=== PATIENT | female | born 1955 | race Caucasian/White ===

== ENCOUNTER 2020-11-14 08:08 | Outpatient (CLI) | payer OTHER, SELFPAY ==
--- NOTE | ~2020-11-14 | DEXA_ITS ---
Bone Density Report Name: Christen Hunter Age: 65 Sex: Female Ethnicity: White Date of : 1955 Indication: postmenopausal; asthma or emphysema; Referring Provider: JEREMY GORDON Study: Bone densitometry was performed. Exam Date: November 14, 2020 Accession number: [id number] Bone Density: Region BMD T-score Z-score Classification AP Spine (L1-L4) 1.067 0.2 2.0 Normal Femoral Neck (Left) 0.813 -0.3 1.2 Normal Total Hip (Left) 0.959 0.1 1.4 Normal Total Hip Bilateral Avg 0.944 0.0 1.3 Normal Femoral Neck (Right) 0.769 -0.7 0.8 Normal Total Hip (Right) 0.928 -0.1 1.1 Normal World Health Organization criteria for BMD impression classify patients as: Normal (T-score at or above -1.0), Osteopenia (T-score between -1.0 and -2.5), or Osteoporosis (T-score at or below -2.5). 10-year Fracture Risk: FRAX not reported because: All T-scores for Spine Total, Hip Total, Femoral Neck at or above -1.0 Clinical Information Provided by Patient: Has used the following medications: Vitamin D, Calcium Has the following medical conditions: Asthma or Emphysema Patient maximum height was 65 Menopause Age: 45 No regular weight bearing exercise Drinks caffeinated beverages Onset of menses at age 14 Number of children 1 Impression: The patient has normal bone mass. Discussion: BONE DENSITY IS ABOVE THE MINIMUM DESIRABLE LEVEL AT ALL SKELETAL SITES TESTED. This patient?s bone mineral density is above the minimum desirable level (T-score -1.0 or better) at all sites measured. The patient should follow a healthful lifestyle (good nutrition with adequate calcium and vitamin D, and appropriate weight-bearing exercise). Follow-Up: Consider repeating this study in 5 years or sooner if there is some new clinical indication. Reported by: DALE on 11/14/2020 8:27:00 AM. Reviewed, dictated and finalized at location AMartha CLARK
== END 2020-11-14 08:09 | disposition home or self-care (01) ==
LOC: ANHIMG 08:15
PROVIDERS: PCP Family Medicine; Visit Provider Obstetrics & Gynecology
DX: Z78.0 Asymptomatic menopausal state (principal)
CPT/HCPCS: 77080

== ENCOUNTER → 2021-03-07 02:54 | Outpatient (CLI) | payer OTHER, SELFPAY ==
[2021-03-07 20:47] LABS: SARS-CoV-2 RNA PCR Negative
== END ==
PROVIDERS: PCP Family Medicine; Visit Provider Family Medicine
DX: R05 Cough (principal); R09.81 Nasal congestion; R53.83 Other fatigue; Z20.822 Contact with and (suspected) exposure to COVID-19
CPT/HCPCS: C9803; U0003; U0005

== ENCOUNTER 2021-12-05 13:52 | Outpatient (CLI) | payer OTHER, SELFPAY ==
[2021-12-05 18:58] LABS: Alanine Aminotransferase 40 U/L (6-35); Albumin Level 4.3 g/dL (3.5-5.1); Alkaline Phosphatase 127 U/L (38-126); Anion Gap 7 mmol/L (8-16); Aspartate Amino Transferase 37 U/L (14-36); Bilirubin,Total 0.3 mg/dL (0.2-1.3); Blood Urea Nitrogen 13 mg/dL (7-17); Calcium 9.3 mg/dL (8.4-10.2); Carbon Dioxide 26 mmol/L (22-30); Chloride 106 mmol/L (98-107); Cholesterol 263 mg/dL (0-200); Estimated Glomerular Filt Rate > 60; Glucose 85 mg/dL (65-110); HDL Direct 46 mg/dL; Potassium 4.4 mmol/L (3.4-5.0); Sodium 139 mmol/L (137-145); Triglycerides 391 mg/dL (<150)
[2021-12-05 18:59] LABS: Basophils Absolute Auto 0.1 K/mm3 (0.0-0.1); Basophils Percent Auto 1.2 % (0.2-1.2); Eosinophils Absolute Auto 0.3 K/mm3 (0-0.3); Eosinophils Percent Auto 3.5 % (0-4.4); Hematocrit 41.6 % (37.0-47.0); Hemoglobin 13.5 g/dL (12.0-15.0); Immature Granulocyte Absolute 0.02 K/mm3 (0.00-0.031); Immature Granulocyte Percent A 0.2 % (0-0.5); Lymphocytes Absolute Auto 2.78 K/mm3 (0.9-3.2); Lymphocytes Percent Auto 34.3 % (18.3-44.2); Mean Corpuscular HGB Conc 32.5 g/dl (32-36); Mean Corpuscular Hemoglobin 31.2 pg (26-34); Mean Corpuscular Volume 96.1 fl (80-100); Mean Platelet Volume 11.7 fl (7.4-10.4); Monocytes Absolute Auto 0.7 K/mm3 (0.1-0.6); Neutrophils Absolute Auto 4.2 K/mm3 (1.3-6.7); Neutrophils Percent Auto 51.8 % (45.5-73.1); Platelet Count Result 236 k/mm3 (150-375); Red Blood Count 4.33 M/mm3 (4.2-5.4); Red Cell Distribution Width 12.9 % (11.5-14.5); White Blood Count 8.1 K/mm3 (4.5-10.0)
[2021-12-05 19:09] LABS: LDL Cholesterol Direct 93 mg/dL
== END 2021-12-05 13:53 | disposition home or self-care (01) ==
PROVIDERS: PCP Family Medicine; Visit Provider Family Medicine
DX: E78.5 Hyperlipidemia, unspecified (principal); Z00.00 Encounter for general adult medical examination without abnormal findings
CPT/HCPCS: 36415; 80053; 80061; 85025

== ENCOUNTER 2022-01-22 08:23 | Outpatient (CLI) | payer OTHER, SELFPAY ==
[2022-01-22 20:50] LABS: Hepatitis B Surface Antigen Negative (Negative)
[2022-01-22 20:56] LABS: HAV RESULT Negative (Negative); Hepatitis B Core IgM Result Negative (Negative)
[2022-01-22 21:08] LABS: Hepatitis C Virus Antibody Negative (Negative)
[2022-01-22 23:02] LABS: Alanine Aminotransferase 19 U/L (6-35); Albumin Level 4.4 g/dL (3.5-5.1); Alkaline Phosphatase 112 U/L (38-126); Aspartate Amino Transferase 22 U/L (14-36); Bilirubin,Total 0.3 mg/dL (0.2-1.3)
== END 2022-01-22 08:24 | disposition home or self-care (01) ==
PROVIDERS: PCP Family Medicine; Visit Provider Family Medicine
DX: R94.5 Abnormal results of liver function studies (principal); R74.8 Abnormal levels of other serum enzymes
CPT/HCPCS: 36415; 80074; 80076

== ENCOUNTER 2022-07-02 08:12 | Outpatient (CLI) | payer OTHER, SELFPAY ==
[2022-07-02 21:34] LABS: Alanine Aminotransferase 49 U/L (6-35); Albumin Level 4.4 g/dL (3.5-5.1); Alkaline Phosphatase 89 U/L (38-126); Anion Gap 4 mmol/L (8-16); Aspartate Amino Transferase 78 U/L (14-36); Bilirubin,Total 0.5 mg/dL (0.2-1.3); Blood Urea Nitrogen 18 mg/dL (7-17); Calcium 9.2 mg/dL (8.4-10.2); Carbon Dioxide 31 mmol/L (22-30); Chloride 100 mmol/L (98-107); Cholesterol 180 mg/dL (0-200); Estimated Glomerular Filt Rate 55; Glucose 81 mg/dL (65-110); HDL Direct 65 mg/dL; Potassium 4.4 mmol/L (3.4-5.0); Sodium 135 mmol/L (137-145); Triglycerides 80 mg/dL (<150)
[2022-07-02 21:46] LABS: LDL Cholesterol Direct 61 mg/dL
== END 2022-07-02 08:13 | disposition home or self-care (01) ==
PROVIDERS: PCP Family Medicine; Visit Provider Internal Medicine Cardiovascular Disease
DX: E78.5 Hyperlipidemia, unspecified (principal)
CPT/HCPCS: 36415; 80053; 80061

== ENCOUNTER 2022-08-01 08:09 | Outpatient (CLI) | payer OTHER, SELFPAY ==
[2022-08-01 21:02] LABS: Alanine Aminotransferase 34 U/L (6-35); Albumin Level 4.1 g/dL (3.5-5.1); Alkaline Phosphatase 153 U/L (38-126); Anion Gap 5 mmol/L (8-16); Aspartate Amino Transferase 107 U/L (14-36); Bilirubin,Total 0.6 mg/dL (0.2-1.3); Blood Urea Nitrogen 14 mg/dL (7-17); Calcium 8.9 mg/dL (8.4-10.2); Carbon Dioxide 30 mmol/L (22-30); Chloride 101 mmol/L (98-107); Estimated Glomerular Filt Rate > 60; Glucose 77 mg/dL (65-110); Sodium 136 mmol/L (137-145)
== END 2022-08-01 08:10 | disposition home or self-care (01) ==
PROVIDERS: PCP Family Medicine; Visit Provider Internal Medicine Cardiovascular Disease
DX: E78.5 Hyperlipidemia, unspecified (principal)
CPT/HCPCS: 36415; 80053

== ENCOUNTER → 2022-08-16 09:21 | Outpatient (CLI) | payer OTHER, SELFPAY ==
--- NOTE | ~2022-08-16 | US_ITS ---
US abdomen limited INDICATION: Elevated liver enzymes. PROCEDURE: Realtime right upper abdominal ultrasound. COMPARISON: No prior studies for comparison. FINDINGS: The pancreas is normal without focal mass or pancreatic ductal dilation. Liver echotexture is normal without focal mass or intrahepatic biliary dilatation. There is normal directional flow i n the portal vein. The gallbladder is normal without stones, gallbladder wall thickening or pericholecystic fluid. Comm on bile duct measures 3 mm. No sonographic Jaime's sign. IMPRESSION: 1: Normal limited abdominal ultrasound. Reviewed, dictated and finalized at location L. DELIVERER
== END ==
PROVIDERS: PCP Family Medicine; Visit Provider Family Medicine
DX: R74.8 Abnormal levels of other serum enzymes (principal); A04.4 Other intestinal Escherichia coli infections
CPT/HCPCS: 76705

== ENCOUNTER → 2022-08-23 15:46 | Outpatient (CLI) | payer OTHER, SELFPAY ==
--- NOTE | ~2022-08-23 | XR_ITS ---
EXAMINATION: XR chest 2V DATE: 08/23/2022 16:19 INDICATION: Unspecified asthma TECHNIQUE: PA and lateral views of the chest are obtained. COMPARISON: None available FINDINGS: The lungs are free of acute opacities. No pleural effusion or pneumothorax. The cardiomedia stinal silhouette is normal. There is moderate thoracic spondylosis. IMPRESSION: 1. No acute cardiopulmonary abnormality. Reviewed, dictated and finalized at location F. MER CHEMIST
== END ==
PROVIDERS: PCP Family Medicine; Visit Provider Family Medicine
DX: J45.901 Unspecified asthma with (acute) exacerbation (principal); R05.9 Cough, unspecified
CPT/HCPCS: 71046

== ENCOUNTER 2022-10-09 08:36 | Outpatient (CLI) | payer OTHER, SELFPAY ==
[2022-10-09 19:12] LABS: Alanine Aminotransferase 22 U/L (6-35); Albumin Level 4.5 g/dL (3.5-5.1); Alkaline Phosphatase 112 U/L (38-126); Anion Gap 4 mmol/L (8-16); Aspartate Amino Transferase 51 U/L (14-36); Bilirubin,Total 0.7 mg/dL (0.2-1.3); Blood Urea Nitrogen 10 mg/dL (7-17); Calcium 9.1 mg/dL (8.4-10.2); Carbon Dioxide 31 mmol/L (22-30); Chloride 103 mmol/L (98-107); Cholesterol 212 mg/dL (0-200); Estimated Glomerular Filt Rate > 60; Glucose 84 mg/dL (65-110); HDL Direct 42 mg/dL; Sodium 138 mmol/L (137-145); Triglycerides 163 mg/dL (<150)
[2022-10-09 19:23] LABS: LDL Cholesterol Direct 106 mg/dL
== END 2022-10-09 08:37 | disposition home or self-care (01) ==
PROVIDERS: PCP Family Medicine; Visit Provider Internal Medicine Cardiovascular Disease
DX: E78.5 Hyperlipidemia, unspecified (principal)
CPT/HCPCS: 36415; 80053; 80061

== ENCOUNTER 2022-11-23 07:16 | Outpatient (CLI) | payer OTHER, SELFPAY ==
[2022-11-23 14:29] LABS: Alanine Aminotransferase 24 U/L (6-35); Albumin Level 4.4 g/dL (3.5-5.1); Alkaline Phosphatase 110 U/L (38-126); Anion Gap 5 mmol/L (8-16); Aspartate Amino Transferase 78 U/L (14-36); Bilirubin,Total 0.6 mg/dL (0.2-1.3); Blood Urea Nitrogen 14 mg/dL (7-17); Carbon Dioxide 30 mmol/L (22-30); Chloride 104 mmol/L (98-107); Cholesterol 203 mg/dL (0-200); Estimated Glomerular Filt Rate > 60; Glucose 83 mg/dL (65-110); HDL Direct 52 mg/dL; Sodium 139 mmol/L (137-145); Triglycerides 124 mg/dL (<150)
[2022-11-23 14:56] LABS: LDL Cholesterol Direct 93 mg/dL
== END 2022-11-23 07:17 | disposition home or self-care (01) ==
PROVIDERS: PCP Family Medicine; Visit Provider Internal Medicine Cardiovascular Disease
DX: E78.5 Hyperlipidemia, unspecified (principal)
CPT/HCPCS: 36415; 80053; 80061

== ENCOUNTER 2023-01-02 14:21 | Outpatient (CLI) | payer OTHER, SELFPAY ==
[2023-01-02 19:04] LABS: Hematocrit 40.1 % (37.0-47.0); Hemoglobin 12.8 g/dL (12.0-15.0); Mean Corpuscular HGB Conc 31.9 g/dl (32-36); Mean Corpuscular Hemoglobin 30.9 pg (26-34); Mean Corpuscular Volume 96.9 fl (80-100); Mean Platelet Volume 10.8 fl (7.4-10.4); Platelet Count Result 266 k/mm3 (150-375); Red Blood Count 4.14 M/mm3 (4.2-5.4); Red Cell Distribution Width 12.8 % (11.5-14.5); White Blood Count 11.8 K/mm3 (4.5-10.0)
[2023-01-02 19:15] LABS: Alanine Aminotransferase 60 U/L (6-35); Albumin Level 4.7 g/dL (3.5-5.1); Alkaline Phosphatase 155 U/L (38-126); Anion Gap 9 mmol/L (8-16); Aspartate Amino Transferase 92 U/L (14-36); Bilirubin,Total 0.7 mg/dL (0.2-1.3); Blood Urea Nitrogen 15 mg/dL (7-17); Calcium 9.6 mg/dL (8.4-10.2); Carbon Dioxide 24 mmol/L (22-30); Chloride 103 mmol/L (98-107); Cholesterol 214 mg/dL (0-200); Estimated Glomerular Filt Rate > 60; Glucose 85 mg/dL (65-110); HDL Direct 53 mg/dL; Potassium 4.1 mmol/L (3.4-5.0); Sodium 136 mmol/L (137-145); Triglycerides 165 mg/dL (<150)
[2023-01-02 19:18] LABS: Alanine Aminotransferase 62 U/L (6-35); Albumin Level 4.7 g/dL (3.5-5.1); Alkaline Phosphatase 153 U/L (38-126); Aspartate Amino Transferase 87 U/L (14-36); Bilirubin,Total 0.7 mg/dL (0.2-1.3)
[2023-01-02 19:26] LABS: LDL Cholesterol Direct 95 mg/dL
== END 2023-01-02 14:22 | disposition home or self-care (01) ==
LOC: ANHBWCLAB 14:23
PROVIDERS: PCP Family Medicine; Visit Provider Internal Medicine Cardiovascular Disease
DX: R74.8 Abnormal levels of other serum enzymes (principal); E78.5 Hyperlipidemia, unspecified; J45.901 Unspecified asthma with (acute) exacerbation; T78.40XA Allergy, unspecified, initial encounter; K21.9 Gastro-esophageal reflux disease without esophagitis; R06.81 Apnea, not elsewhere classified; S86.019A Strain of unspecified Achilles tendon, initial encounter; E03.9 Hypothyroidism, unspecified; R79.89 Other specified abnormal findings of blood chemistry; G43.909 Migraine, unspecified, not intractable, without status migrainosus; F41.9 Anxiety disorder, unspecified; B35.1 Tinea unguium; R60.9 Edema, unspecified
CPT/HCPCS: 36415; 80053; 80061; 80076; 84443; 85027

== ENCOUNTER 2023-06-19 11:34 | Outpatient (CLI) | payer OTHER, SELFPAY ==
[2023-06-19 19:17] LABS: Hemoglobin 12.7 g/dL (12.0-15.0); Mean Corpuscular HGB Conc 31.8 g/dl (32-36); Mean Corpuscular Hemoglobin 31.1 pg (26-34); Mean Corpuscular Volume 97.8 fl (80-100); Mean Platelet Volume 11.3 fl (7.4-10.4); Platelet Count Result 284 k/mm3 (150-375); Red Blood Count 4.09 M/mm3 (4.2-5.4); Red Cell Distribution Width 12.7 % (11.5-14.5); White Blood Count 7.5 K/mm3 (4.5-10.0)
[2023-06-19 19:18] LABS: Alanine Aminotransferase 23 U/L (6-35); Albumin Level 4.2 g/dL (3.5-5.1); Alkaline Phosphatase 116 U/L (38-126); Anion Gap 6 mmol/L (8-16); Aspartate Amino Transferase 29 U/L (14-36); Bilirubin,Total 0.5 mg/dL (0.2-1.3); Blood Urea Nitrogen 14 mg/dL (7-17); Calcium 9.4 mg/dL (8.4-10.2); Carbon Dioxide 29 mmol/L (22-30); Chloride 104 mmol/L (98-107); Estimated Glomerular Filt Rate 55; Glucose 90 mg/dL (65-110); Potassium 4.1 mmol/L (3.4-5.0); Sodium 139 mmol/L (137-145)
== END 2023-06-19 11:35 | disposition home or self-care (01) ==
PROVIDERS: PCP Family Medicine; Visit Provider Family Medicine
DX: E03.9 Hypothyroidism, unspecified (principal); E78.5 Hyperlipidemia, unspecified; F41.9 Anxiety disorder, unspecified; J45.901 Unspecified asthma with (acute) exacerbation; R53.83 Other fatigue; R74.8 Abnormal levels of other serum enzymes; R79.89 Other specified abnormal findings of blood chemistry; T78.40XA Allergy, unspecified, initial encounter; R25.1 Tremor, unspecified; E66.9 Obesity, unspecified; Z91.199 Patient's noncompliance with other medical treatment and regimen due to unspecified reason
CPT/HCPCS: 36415; 80053; 84443; 85027

== ENCOUNTER 2023-12-16 08:44 | Emergency (ER) | payer OTHER, SELFPAY ==
--- NOTE | 2023-12-16 08:57 | ED.URI ---
HPI - URI/Sore Throat General Chief Complaint: Unspecified Stated Complaint: Swollen face/neck Time Seen by Provider: 12/16/23 08:57 Source: patient Mode of arrival: ambulatory Limitations: no limitations History of Present Illness HPI Narrative: 68-year-old female presented for complaint of redness and swelling to the right side of her face, right neck and left hand. Onset 2 days ago. Endorses itching and mild pain, denies drainage. States she was watering tomato plants and may have come in contact with poison jack again. She was treated for poison jack a few weeks ago. She has been taking Benadryl, last dose this morning. Denies lip, tongue, or throat swelling, shortness of breath or wheezing. Denies changes to soap, detergent, lotion, or any other exposures. No one else in the house or any contacts with similar symptoms. Related Data Home Medications Medication Instructions Recorded Confirmed zinc acetate 25 mg (zinc) capsule 25 mg PO DAILY 08/02/23 (Galzin) Allergies Allergy/AdvReac Type Severity Reaction Status Date / Time fexofenadine [From Jennifer] Allergy Mild Hives Verified 08/02/23 08:23 Review of Systems Review of Systems: CONSTITUTIONAL: Denies body aches, fever, chills, or sweats. EYES: Denies visual changes, redness, or discharge. ENT: Denies rhinorrhea, congestion CARDIOVASCULAR: Denies chest pain, palpitations, or edema. RESPIRATORY: Denies cough or dyspnea. GASTROINTESTINAL: Denies abdominal pain, nausea, vomiting, or diarrhea. SKIN: reports itchy rash to face MUSCULOSKELETAL: Denies back pain, joint pain, or myalgia. NEUROLOGIC: Denies headache, numbness, tingling, or weakness. [facility] Past Medical History Medical History Acid reflux Allergies Anxiety Asthma Migraines Surgical History Surgical History H/O breast biopsy History of hernia repair Hx of tonsillectomy Family History Family History Mother Rheumatoid arthritis Dementia COPD (chronic obstructive pulmonary disease) Hyperlipidemia Father Cancer Grandparent Diabetes mellitus Sibling Thyroid disorder Rheumatoid arthritis Hyperlipidemia Social History Social History Smoking status: Never smoker Alcohol intake: never Substance use: never Substance use type: does not use Lack of Transportation: No Lack of Food: Sometimes True Current Housing: I Have Housing Concerned About Future Housing: No Difficulty Paying Gas/Electric Bills: No Difficulty Paying for Meds: No Currently Unemployed: No Education: High School Diploma/GED Difficulty w/ Childcare or Family Care: No Living arrangements: with family Comments At time of signature, I have reviewed and agree with nursing past medical, surgical, social and family history unless otherwise noted. Please see nursing chart for further information. There is no relevant family history pertinent to the presenting complaint Exam Narrative: GENERAL: Well-appearing HEAD: Normocephalic, atraumatic. EYES: conjunctivae clear, and EOMI. No periorbital edema. ENT: Mucous membranes moist. Oropharynx without edema, erythema or lesions. No soft palate or uvula edema, no tongue, lip edema or other mucosal involvement NECK: Supple. No lymphadenopathy no headache, photophobia or neck pain CHEST: Clear to auscultation. no respiratory compromise, no stridor, no wheezing, no wheezing HEART: Regular rate and rhythm. SKIN: Warm, dry. Right side of face with erythema to cheek and forehead, scabbing vesicles to cheek, minimal swelling to right cheek; right posterior neck with area of erythema most c/w contact dermatitis Left thumb with <0.5cm area of vesicles on erythematous base. NEURO: Alert and oriented x3. Course Course Danielle
[2023-12-16 09:00] VITALS: BP 150/61; PULSE 68; RESP 16; TEMP 36.8; O2SAT 98
[2023-12-16] MEDS: methylPREDNISolone SOD SUCC 125 MG VIAL IM (09:10)
== END 2023-12-16 09:38 | disposition home or self-care (01) ==
PROVIDERS: Emergency Provider Nurse Practitioner Family; PCP Family Medicine
DX: L25.9 Unspecified contact dermatitis, unspecified cause (principal); J45.909 Unspecified asthma, uncomplicated; K21.9 Gastro-esophageal reflux disease without esophagitis
CPT/HCPCS: 96372; 99213; G0463; J2919

== ENCOUNTER 2024-03-18 06:37 | Outpatient (CLI) | payer OTHER, SELFPAY ==
--- NOTE | ~2024-03-18 | XR_ITS ---
Lumbosacral Spine: AP and lateral views Clinical History: Pain Findings: The normal lordotic curve is maintained. The vertebral bodies and posterior elements are i ntact. There is mild degenerative disc narrowing at L3-L4 and L4-L5. There is moderate facet arthropa thy throughout the lumbar spine.. The sacroiliac joints are normally outlined. Impression: Mtks-gw-wksnouam degenerative spondylosis, as above. Reviewed, dictated and finalized at location M. Impression: [id number]-[id number]-sgqienit degenerative spondylosis, as above.
== END 2024-03-18 06:38 | disposition home or self-care (01) ==
PROVIDERS: PCP Nurse Practitioner Adult Health; Visit Provider Nurse Practitioner Adult Health
DX: M43.06 Spondylolysis, lumbar region (principal)
CPT/HCPCS: 72100

== ENCOUNTER 2024-04-27 08:19 | Outpatient (CLI) | payer OTHER, SELFPAY ==
--- NOTE | ~2024-04-27 | MM_ITS ---
EXAMINATION: MM screening jaspreet BI w bijal HISTORY: Screening TECHNIQUE: Craniocaudal and mediolateral oblique 3-D tomosynthesis images were obtained and synthetic 2-D images were generated. CAD analysis was submitted and interpreted. COMPARISON: No prior mammogram is available for comparison at this institution. BREAST PARENCHYMAL COMPOSITION: Not dense: There are scattered areas of fibroglandular density. FINDINGS: There are nodular asymmetries in the upper central aspect of the left breast, middle third. There is no mammographic evidence for malignancy in the right breast. IMPRESSION: 1. Nodular asymmetries in the left breast. 2. Additional mammographic views and possible breast ultrasound are recommended. BI-RADS Category 0: Incomplete: Needs additional imaging evaluation. Reviewed, dictated and finalized at location B. R FEEDER IMPRESSION: 1. Nodular asymmetries in the left breast. 2. Additional mammographic views and possible breast ultrasound are recommended . BI-RADS Category 0: Incomplete: Needs additional imaging evaluation.
--- NOTE | ~2024-04-27 | DEXA_ITS ---
Bone Density Report Name: ROM LEGER Age: 69 Sex: Female Ethnicity: White Date of : 1955 Indication: postmenopausal; screening for osteoporosis; asthma or emphysema; Referring Provider: KATY CARROLL Study: Bone densitometry was performed. Exam Date: April 27, 2024 Accession number: [id number] Bone Density: Region BMD T-score Z-score Classification AP Spine(L1-L4) 1.115 0.6 2.7 Normal Femoral Neck (Left) 0.841 -0.1 1.7 Normal Total Hip (Left) 0.986 0.4 1.8 Normal Femoral Neck (Right) 0.803 -0.4 1.3 Normal Total Hip (Right) 0.943 0.0 1.5 Normal Total Hip Mean 0.965 0.2 1.7 Normal World Health Organization criteria for BMD impression classify patients as: Normal (T-score at or above -1.0), Osteopenia (T-score between -1.0 and -2.5), or Osteoporosis (T-score at or below -2.5). 10-year Fracture Risk: FRAX not reported because: All T-scores for Spine Total, Hip Total, Femoral Neck at or above -1.0 Previous Exams: Region Exam Age BMD T-score BMD Change BMD Change Date g/cm2 vs Baseline vs Previous AP Spine (L1-L4) 04/27/2024 69 1.115 0.6 0.047 (4.4%)# 0.047 (4.4%)# 11/14/2020 65 1.067 0.2 Total Hip(Left) 04/27/2024 69 0.986 0.4 0.027 (2.8%)# 0.027 (2.8%)# 11/14/2020 65 0.959 0.1 Total Hip(Right) 04/27/2024 69 0.943 0.0 0.016 (1.7%)# 0.016 (1.7%)# 11/14/2020 65 0.928 -0.1 *Denotes significance at 95% confidence level, LSC for AP Spine = 0.022 g/cm2, LSC for Total Hip = 0.027 g/cm2 # Denotes dissimilar scan types or analysis methods Clinical Information Provided by Patient: Has the following medical conditions: Asthma or Emphysema Patient maximum height was 65 Menopause Age: 45 No regular weight bearing exercise Drinks caffeinated beverages Onset of menses at age 14 Number of children 1 Impression: The patient has normal bone mass. No significant bone loss was observed. Discussion: BONE DENSITY IS ABOVE THE MINIMUM DESIRABLE LEVEL AT ALL SKELETAL SITES TESTED. This patient?s bone mineral density is above the minimum desirable level (T-score -1.0 or better) at all sites measured. The patient should follow a healthful lifestyle (good nutrition with adequate calcium and vitamin D, and appropriate weight-bearing exercise). Follow-Up: Consider repeating this study in 5 years or sooner if there is some new clinical indication. Reported by: MACO on 04/27/2024 9:01:00 AM. Reviewed, dictated and finalized at location AMartha [facility]
== END 2024-04-27 08:20 | disposition home or self-care (01) ==
LOC: ANHIMG 08:20
PROVIDERS: PCP Nurse Practitioner Adult Health; Visit Provider Family Medicine
DX: Z12.31 Encounter for screening mammogram for malignant neoplasm of breast (principal); N64.89 Other specified disorders of breast; Z78.0 Asymptomatic menopausal state
CPT/HCPCS: 77063; 77067; 77080

== ENCOUNTER 2024-06-09 07:18 | Outpatient (CLI) | payer OTHER, SELFPAY ==
[2024-06-09 19:48] LABS: Basophils Absolute Auto 0.1 K/mm3 (0.0-0.1); Basophils Percent Auto 1.1 % (0.2-1.2); Eosinophils Absolute Auto 0.2 K/mm3 (0-0.3); Eosinophils Percent Auto 3.7 % (0-4.4); Hematocrit 39.8 % (37.0-47.0); Hemoglobin 12.4 g/dL (12.0-15.0); Immature Granulocyte Absolute 0.01 K/mm3 (0.00-0.031); Immature Granulocyte Percent A 0.2 % (0-0.5); Lymphocytes Absolute Auto 2.39 K/mm3 (0.9-3.2); Lymphocytes Percent Auto 36.5 % (18.3-44.2); Mean Corpuscular HGB Conc 31.2 g/dl (32-36); Mean Corpuscular Hemoglobin 31.5 pg (26-34); Mean Platelet Volume 10.8 fl (7.4-10.4); Monocytes Absolute Auto 0.5 K/mm3 (0.1-0.6); Monocytes Percent Auto 8.1 % (2.6-8.5); Neutrophils Absolute Auto 3.3 K/mm3 (1.3-6.7); Neutrophils Percent Auto 50.4 % (45.5-73.1); Platelet Count Result 271 k/mm3 (150-375); Red Blood Count 3.94 M/mm3 (4.2-5.4); Red Cell Distribution Width 13.4 % (11.5-14.5); White Blood Count 6.6 K/mm3 (4.5-10.0)
[2024-06-09 20:00] LABS: Alanine Aminotransferase 16 U/L (6-35); Albumin Level 4.2 g/dL (3.5-5.1); Alkaline Phosphatase 100 U/L (38-126); Anion Gap 2 mmol/L (4-12); Aspartate Amino Transferase 66 U/L (14-36); Bilirubin,Total 0.6 mg/dL (0.2-1.3); Blood Urea Nitrogen 15 mg/dL (7-17); Carbon Dioxide 29 mmol/L (22-30); Chloride 106 mmol/L (98-107); Cholesterol 228 mg/dL (0-200); Estimated Glomerular Filt Rate > 60; Glucose 82 mg/dL (65-110); HDL Direct 50 mg/dL; Potassium 4.4 mmol/L (3.4-5.0); Sodium 137 mmol/L (137-145); Triglycerides 136 mg/dL (<150)
[2024-06-09 20:12] LABS: LDL Cholesterol Direct 107 mg/dL
[2024-06-09 22:35] LABS: Vitamin D 25 Hydroxy 28.1 ng/mL
== END 2024-06-09 07:19 | disposition home or self-care (01) ==
PROVIDERS: PCP Nurse Practitioner Adult Health; Visit Provider Nurse Practitioner Adult Health
DX: E78.5 Hyperlipidemia, unspecified (principal); R79.89 Other specified abnormal findings of blood chemistry; Z79.899 Other long term (current) drug therapy
CPT/HCPCS: 36415; 80053; 80061; 82306; 84443; 85025

== ENCOUNTER 2024-06-11 14:46 | Outpatient (CLI) | payer OTHER, SELFPAY ==
[2024-06-11 20:24] LABS: Free T4 Free Thyroxine 0.92 ng/dL (0.78-2.19)
== END 2024-06-11 14:47 | disposition home or self-care (01) ==
LOC: ANHCATHLAB 14:48 → ANHBWCLAB 14:50
PROVIDERS: PCP Nurse Practitioner Adult Health; Visit Provider Nurse Practitioner Adult Health
DX: E03.9 Hypothyroidism, unspecified (principal)
CPT/HCPCS: 36415; 84439

== ENCOUNTER 2024-09-17 11:44 | Outpatient (CLI) | payer OTHER, SELFPAY ==
--- NOTE | 2024-09-17 12:51 | ECG_ITS ---
Test Date: 2024-09-17 13:07:11 Measurements Intervals [place] Rate: 68 P: 61 [place]: 159 QRS: 31 QRSD: 83 T: 49 QT: 384 QTc: 411 Interpretive Statements SINUS RHYTHM No previous ECG available for comparison Electronically Signed On 09-17-2024 14:37:23 CDT by Brandyn Desir M.D.
--- OUTSIDE RECORDS SUMMARY | 2024-09-17 13:01 | XMS_ITS | Clinical Summary ---
Author Organization [facility] [email or web address] Address [address] [place] [address] Care Team Providers Care Preschool Special Education Teacher Name Role Phone Amor Frazier MD Primary Care Provider [phone] Source Comments [facility] [email or web address],non-owned Affiliates and Associated Physician Practices is amultiple site organization consisting of ambulatory clinics and hospital sitesin [place], [place], [place] and [place]. This disclosure is being madepursuant to the Care Everywhere program and may not contain all information available regarding this patient. Last updated 18.[email or web address] Allergies Active Allergy Reactions Criticality Noted Date Comments Fexofenadine Unknown 10/07/2017 Medications * Be aware that medications may not be up to date on this document. Alwaysverify current medications with the patient. Medication Sig Dispensed Refills Start Date End Date Status montelukast (Singulair) 10 MG tablet Take 1 (one) tablet by mouth once daily 02/06/2023 Active Active Problems Problem Noted Date Diagnosed Date Elevated liver enzymes 04/26/2023 Overview (04/26/2023): 04/26/23 Fibroscan CAP 283, LSM 3.0 kPa Family History Medical History Relation Name Comments Cancer - Lung Father Arthritis - Rheumatoid Mother CAD (Coronary Artery Disease) Mother Dementia Mother Relation Name Status Comments Father Mother Social History Tobacco Use Types Packs/Day Years Used Date Smoking Tobacco: Never Smokeless Tobacco: Never Tobacco Cessation:Counseling Given: Not Answered Alcohol Use Standard Drinks/Week Comments Never 0 (1 standard drink = 0.6 oz pur e alcohol) Sex and Gender Information Value Date Recorded Sex Assigned at Not on file Gender Identity Not on file Sexual Orientation Not on file Last Filed Vital Signs Vital Sign Reading Time Taken Comments Blood Pressure 164/71 04/26/2023 9:30 AM CDT Pulse 82 04/26/2023 9:30 AM CDT Temperature 36.8 C (98.2 F) 11/21/2018 9:37 AM CDT Respiratory Rate 17 10/07/2017 11:50 AM CDT Oxygen Saturation 98% 04/26/2023 9:30 AM CDT Inhaled Oxygen Concentration - - Weight 86.2 kg (190 lb) 04/26/2023 9:30 AM CDT Height 167.6 cm (5' 6 ) 04/26/2023 9:30 AM CDT Body Mass Index 30.67 04/26/2023 9:30 AM CDT Plan of Treatment Health Maintenance Due Date Last Done Comments BONE DENSITY TESTING 1955 COLOGUARD (AGES 45-75) - COL ON CA SCREENING 1955 COLON MONITORING 1955 COLONOSCOPY - COLON CA SCREENING 1955 CT COLONOGRAPHY - COLON CA SCREENING 1955 Colorectal Cancer Screening 1955 FIT - COLON CA SCREENING 1955 FLEX SIG - COLON CA SCREENING 1955 LIPID TESTING 1955 MAMMOGRAM 1955 MEDICARE AWV 12 MONTHS 1955 HEPATITIS C SCREENING 03/18/1973 DTAP/TDAP/TD VACCINES (1 - Tdap) 1974 PNEUMOCOCCAL VACCINE 50+ (1 of 1 - PCV) 2005 ZOSTER VACCINE (1 of 2) 2005 COVID-19 VACCINE ( - 2023-2 5 season) 2024 INFLUENZA VACCINE (#1) 2024 DEPRESSION SCREENING 06/24/2024 MEDICARE AWV CALENDAR YEAR 2024 SCREENING FOR DIABETES 04/26/2026 04/26/2023 Respiratory Syncytial Virus (RSV) Vaccine Pt: or over 60 yrs (1 - 1-dose 75+ series) 2030 HEPATITIS B VACCINE Aged Out No longe r eligible based on patient's age to complete this topic HIB VACCINE Aged Out No longer eligi ble based on patient's age to complete this topic HPV VACCINE Aged Out No longer eligi ble based on patient's age to complete this topic MENINGOCOCCAL (Group B) VACC INE SHARED DECISION-MAKING Aged Out No longer eligibl e based on patient's age to complete this topic MENINGOCOCCAL GROUPS A/C/Y/W VACCINE Aged Out No longer eligible b ased on patient's age to complete this topic Procedures Procedure Name Priority Date/Time Associated Diagnosis Comments COMPREHENSIVE METABOLIC PANEL Routine 04/26/2023 11:31 AM CDT Elevated liver enzymes from Last 3 Months or Most Recently Relevant to Health Maintenance Results * (ABNORMAL) COMPREHENSIVE METABOLIC PANEL (04/26/2023 11:31 AM CDT) BUN 16 7 - 26 mg/dL 04/26/2023 12:13 PM [facility] Creatinine 0.82 0.56 - 0.96 mg/dL 04/26/2023 12:13 PM [facility] Sodium 142 136 - 145 mmol/L 04/26/2023 12:13 PM [facility] Potassium 4.0 3.5 - 4.5 mmol/L 04/26/2023 12:13 PM [facility] Chloride 108(H) 98 - 107 mmol/L 04/26/2023 12:13 PM [facility] CO2 27 22 - 29 mmol/L 04/26/2023 12:13 PM [facility] Glucose 97 70 - 115 mg/dL 04/26/2023 12:13 PM [facility] Calcium 9.7 8.4 - 10.2 mg/dL 04/26/2023 12:13 PM [facility] Protein Total 7.5 6.0 - 8.3 g/dL 04/26/2023 12:13 PM [facility] Albumin 4.1 3.4 - 5.0 g/dL 04/26/2023 12:13 PM [facility] Bilirubin Total 0.6 0.2 - 1.2 mg/dL 04/26/2023 12:13 PM [facility] Alkaline Phosphatase 111 40 - 150 U/L 04/26/2023 12:13 PM [facility] ALT 27 5 - 55 U/L 04/26/2023 12:13 PM [facility] AST 24 5 - 34 U/L 04/26/2023 12:13 PM [facility] Anion Gap 7 6 - 16 04/26/2023 12:13 PM [facility] BUN/Creatinine Ratio 20 7 - 23 04/26/2023 12:13 PM [facility] Osmolality Calculated 295 275 - 295 mOsm/kg 04/26/2023 12:13 PM [facility] Albumin/Globulin Ratio 1.2 1.1 - 2.3 04/26/2023 12:13 PM [facility] eGFR by CKD-EPI 78(L) >=90 mL/min/1.7 3 m2 04/26/2023 12:13 PM [facility] Blood BLOOD SPECIMEN / Unknown Lab Venipuncture / Unknown 04/26/2023 11:31 AM CDT 04/26/2023 11:47 AM CDT Rachel Elise TRESTLE MAINTERNANCE LABORER-DISTRIBUTION TRANSFORMER ASSEMBLER LAB - CHEMIS TRY ORDERABLES [facility] [address] [place] [address], [facility] [phone] from Last 3 Months or Most Recently Relevant to Health Maintenance Care Teams Preschool Special Education Teacher Relationship Specialty Start Date End Date Amor Frazier MD [address] [place] [id number] PCP - General Family Medicine 04/26/23
--- OUTSIDE RECORDS SUMMARY | 2024-09-17 13:01 | XMS_ITS | Continuity of Care Document ---
Author Organization [facility] Address [address] [place] [address] [address] [place] [address] Phone Care Team Providers Care Blast Hole Driller Name Role Phone Dai Mary OD Unavailable [...] Copied on Encounter Office/outpa tient Visit, [facility], [address], [place], [place], [id number], tel:[phone] SEC [place] Professional Complete exam (chief complaint) Combined forms of age-related cataract, bilateralOcula r hypertension, bilateralAdhes ion of pupillary membrane of both eyes [address]. [address], [place], [place], [address], [place]. tel:[phone] Referring Provider: Dai Mary OD [place], [address], [place], [address] . tel:[phone] Family History Family Member Type Diagnosis Age At Onset Problem Family history of Diabetes m lizettesumit Payers Payer name Insurance type Covered democrat ID Aline antonio(s) [employer] Claims [id number] Social History Type Description Quantity Date Captured [...] PCP is Dr. Amor Frazier, not in [facility]. Reason For Referral Reason For Referral No [...]
[2024-09-17 13:17] LABS: Hematocrit 41.7 % (37.0-47.0); Hemoglobin 13.6 g/dL (12.0-15.0); Mean Corpuscular HGB Conc 32.6 g/dl (32-36); Mean Corpuscular Hemoglobin 30.7 pg (26-34); Mean Corpuscular Volume 94.1 fl (80-100); Mean Platelet Volume 10.5 fl (7.4-10.4); Platelet Count Result 275 k/mm3 (150-375); Red Blood Count 4.43 M/mm3 (4.2-5.4); Red Cell Distribution Width 12.1 % (11.5-14.5); White Blood Count 8.7 K/mm3 (4.5-10.0)
[2024-09-17 13:19] LABS: Add Urine Microscopic? NO; Appearance Urine Clear (Clear); Bilirubin Urine Negative (Negative); Blood Urine Negative (Negative); Color Urine Yellow (Yellow); Glucose Urine UA Negative (Negative); Ketones Urine Negative (Negative); Leukocyte Esterase Ur Negative LEU/UL (Negative); Nitrate Urine Negative (Negative); Protein Urine Negative (Negative); Specific Grav Ur 1.004 (1.001-1.035); Urobilinogen Urine 0.2 mg/dL (<2.0)
[2024-09-17 13:26] LABS: Anion Gap 10 mmol/L (4-12); Blood Urea Nitrogen 15 mg/dL (7-17); Calcium 9.6 mg/dL (8.4-10.2); Carbon Dioxide 29 mmol/L (22-30); Chloride 101 mmol/L (98-107); Estimated Glomerular Filt Rate > 60; Glucose 98 mg/dL (65-110); Potassium 4.6 mmol/L (3.4-5.0); Sodium 140 mmol/L (137-145)
[2024-09-17 13:33] LABS: INR 0.9; Partial Thromboplastin Time 26.8 Seconds (22.3-36.8); Prothrombin Time 12.8 Seconds (11.1-14.7)
== END 2024-09-17 11:45 | disposition home or self-care (01) ==
LOC: ANHSURGERY 11:52
PROVIDERS: PCP Nurse Practitioner Adult Health; Visit Provider Neurological Surgery
DX: M51.26 Other intervertebral disc displacement, lumbar region (principal); Z01.818 Encounter for other preprocedural examination
CPT/HCPCS: 36415; 80048; 81003; 85027; 85610; 85730; 93005

== ENCOUNTER 2024-10-01 00:37 | Day surgery (SDC) | payer OTHER, SELFPAY ==
--- NOTE | 2024-09-17 11:46 | PC.NURSE ---
Report to the Outpatient Waiting Room, entrance under the green pavilion located off [facility], at time _11 AM on date _10/01/24 . Planned Procedure Time: __1:00 PM .? Time changes happen often and if your time is changed the preop area will call you the afternoon before. - You and your visitor will be asked to self-screen and do not enter if you have any COVID symptoms. Please call surgeon if you need to reschedule. - A mask is optional within the hospital at this time. Patients may have clear liquids (water, carbonated beverages, clear teas, apple juice) until 3 hours prior to surgery ( 10 AM) with a maximum of 20 ounces. - No food from midnight until time of surgery and no smoking, or chewing tobacco (or any form of nicotine). No chewing gum, candy or mints. - Take only the following medications with a SIP of water on the morning of surgery: ___GABAPENTIN_,INHALER IF NEEDED DO NOT STOP ANY OF YOUR OTHER PRESCRIPTION MEDICATIONS PRIOR TO SURGERY EXCEPT THE FOLLOWING Hold all vitamins and supplements for 3 days per anesthesiologist. LAST DOSE09/27/24 Medications to discontinue per physician NONE Please no make-up, nail welsh, hairspray, perfume, deodorant, or body powder the day of surgery.? No jewelry (including any body piercings) or valuables the day of surgery, leave them at home.? Please take a shower or bath the night before, or the morning of, surgery with an antibacterial soap.? Wear comfortable, loose fitting clothing.? Children are encouraged to wear pajamas. - Jewelry must be removed prior to entering the operating room.? Rings and piercings that are not removed may be cut off. - The hospital will not accept responsibility for valuables.? - Please leave all valuables, including medications, at home the day of surgery. If you are going home after surgery, a licensed rickshaw driver must drive you home.? - NO public transportation without another adult if you receive anesthesia. - We recommend that an adult stay with you for 24 hours following discharge. - We also recommend that you do not drive, make important decision, drink alcoholic beverages, or take any drugs that were not prescribed by your health care provider for at least 24 hours after your discharge time. Follow any additional instructions given to you from your surgeon. VERBAL AND WRITTEN instructions given to ___PATIENT__AND SPOUSE GENO and asked if any additional questions and then verbalized understanding. Patient advised to call surgeon office or pre surgery nurse liaison [phone] if any additional questions.
[2024-09-17 11:55] VITALS: BMI 33.3
[2024-09-17 12:39] VITALS: BP 144/71; PULSE 68; RESP 18; TEMP 36.6; O2SAT 98
[2024-10-01] VITALS (9 sets, daily range): BP systolic 117–158; BP diastolic 61–92; PULSE 70–97; RESP 13–20; TEMP 36.1–36.6; O2SAT 99–100; BMI 33.3
--- NOTE | ~2024-10-01 | XR_ITS ---
EXAMINATION: XR fluoroscopy no charge DATE: 10/01/2024 14:52 INDICATION: Lumbar discectomy TECHNIQUE: Single lateral fluoroscopic spot image of the lumbosacral junction was obtained during pro cedure performed by Dr. Bernal. Radiologist was not present for the imaging or procedure. The amoun t of fluoroscopy time used during this procedure was 3.1 minutes. Total DAP was 0.555 Gycm^2. COMPARISON: None. FINDINGS: Image demonstrates surgical retractors, a lap sponge ejecting over the soft tissues posteri or to the lumbosacral junction. The tip of a metallic probe projects over the intra-articular process of L5. IMPRESSION: 1. Fluoroscopy utilized during a procedure at the lumbosacral junction. See procedure note for furthe r detail. Reviewed, dictated and finalized at location B. IMPRESSION: 1. Fluoroscopy utilized during a procedure at the lumbosacral junction. See pro cedure note for further detail.
--- OUTSIDE RECORDS SUMMARY | 2024-10-01 00:39 | XMS_ITS | Continuity of Care Document ---
Author Organization [facility] Address [address] [place] [address] [address] [place] [address] Phone Care Team Providers Care Hotbed Operator Name Role Phone Dai Mary OD Unavailable [...] Copied on Encounter Office/outpa tient Visit, [facility], [address], [place], [place], [id number], tel:[phone] SEC [place] Professional Complete exam (chief complaint) Combined forms of age-related cataract, bilateralOcula r hypertension, bilateralAdhes ion of pupillary membrane of both eyes 2 [address]. [address], [address], [place], [place], [address], [place]. tel:[phone] Referring Provider: Dai Mary OD [place], [address], [place], [address] . tel:[phone] Family History Family Member Type Diagnosis Age At Onset Problem Family history of Diabetes m lizettesumit Payers Payer name Insurance type Covered green party ID Aline antonio(s) [employer] Claims [id number] Social History Type Description Quantity Date Captured [...] PCP is Dr. Amor Frazier, not in [facility]. Reason For Referral Reason For Referral [...]
--- OUTSIDE RECORDS SUMMARY | 2024-10-01 00:39 | XMS_ITS | Clinical Summary ---
Author Organization [facility] [employer] Address [address] [place] [address] Care Team Providers Care Refractory Repairer Name Role Phone Amor Frazier MD Primary Care Provider [phone] Source Comments [facility] [employer],non-owned Affiliates and Associated Physician Practices is amultiple site organization consisting of ambulatory clinics and hospital sitesin [place], [place], [place] and [place]. This disclosure is being madepursuant to the Care Everywhere program and may not contain all information available regarding this patient. Last updated 18.[facility] [employer] Allergies Active Allergy Reactions Criticality Noted Date [...] VACCINE ( - 2023-2 5 season) 2024 DEPRESSION SCREENING 06/24/2024 MEDICARE AWV CALENDAR YEAR 2024 INFLUENZA VACCINE (Season Ended) 2025 SCREENING FOR DIABETES 04/26/2026 04/26/2023 Respiratory Syncytial [...] 7 - 26 mg/dL 04/26/2023 12:13 PM [facility] Creatinine 0.82 0.56 - 0.96 mg/dL 04/26/2023 12:13 PM [facility] Sodium 142 136 - 145 mmol/L 04/26/2023 12:13 PM [facility] Potassium 4.0 3.5 - 4.5 mmol/L 04/26/2023 12:13 PM [facility] Chloride 108(H) 98 - 107 mmol/L 04/26/2023 12:13 PM [facility] CO2 27 22 - 29 mmol/L 04/26/2023 12:13 PM [facility] Glucose 97 70 - 115 mg/dL 04/26/2023 12:13 PM [facility] Calcium 9.7 8.4 - 10.2 mg/dL 04/26/2023 12:13 PM [facility] Protein Total 7.5 6.0 - 8.3 g/dL 04/26/2023 12:13 PM [facility] Albumin 4.1 3.4 - 5.0 g/dL 04/26/2023 12:13 PM [facility] Bilirubin Total 0.6 0.2 - 1.2 mg/dL 04/26/2023 12:13 PM [facility] Alkaline Phosphatase 111 40 - 150 U/L 04/26/2023 12:13 PM [facility] ALT 27 5 - 55 U/L 04/26/2023 12:13 PM [facility] AST 24 5 - 34 U/L 04/26/2023 12:13 PM [facility] Anion Gap 7 6 - 16 04/26/2023 12:13 PM [facility] BUN/Creatinine Ratio 20 7 - 23 04/26/2023 12:13 PM [facility] Osmolality Calculated 295 275 - 295 mOsm/kg 04/26/2023 12:13 PM [facility] Albumin/Globulin Ratio 1.2 1.1 - 2.3 04/26/2023 12:13 PM [facility] eGFR by CKD-EPI 78(L) >=90 mL/min/1.7 3 m2 04/26/2023 12:13 PM [facility] Blood BLOOD SPECIMEN / Unknown Lab Venipuncture / Unknown 04/26/2023 11:31 AM CDT 04/26/2023 11:47 AM CDT Rachel Elise FLOOR PRESS OPERATOR-MEDIA LIBRARIAN LAB - CHEMIS TRY ORDERABLES [facility] [address] [place] [address], [facility] [phone] from Last 3 Months or Most Recently Relevant to Health Maintenance Care Teams Refractory Repairer Relationship Specialty Start Date End Date Amor Frazier MD [address] [place] [id number] PCP - General Family Medicine 04/26/23
[2024-10-01] MEDS: LACTATED RINGERS 1,000 ML 30 ML IV CONT ×2 (12:43→14:52)
--- NOTE | 2024-10-01 13:14 | WPDANESEPPF ---
Anes - Initial Pre Proc Eval Procedure: Operation Date: 10/01/24 13:00 Proposed Procedures p Left L5-S1 Micro Lumbar Discectomy - Jae Bernal MD Date/Time: 10/01/24 13:14 Surgeon: Jae Bernal MD Pre Op Diagnosis: left L5-S1 herniated nucleous pulposis Patient Data Age: 69 Gender: F Height: 1.65 m Weight: 90.9 kg Last Vital Signs Temp 97.8 F 10/01/24 12:39 Pulse 76 10/01/24 12:39 Resp 18 09/17/24 12:39 BP 158/82 H 10/01/24 12:39 Pulse Ox 99 10/01/24 12:39 O2 Del Method Room Air 10/01/24 12:39 Allergies Allergy/AdvReac Type Severity Reaction Status Date / Time fexofenadine (From Jennifer) Allergy Mild Hives Verified 10/01/24 12:35 Home Medications ?Medication ?Instructions ?Recorded ?Confirmed ?Type trazodone 50 mg tablet 50 mg PO QHS PRN insomnia #30 tabs 02/06/23 09/17/24 Rx montelukast 10 mg tablet 10 mg PO DAILY #90 tabs 08/02/23 09/17/24 Rx (Singulair) zinc acetate 25 mg (zinc) capsule 25 mg PO DAILY 08/02/23 09/17/24 History (Galzin) triamcinolone acetonide 0.1 % 1 applic topical BID #80 grams 02/04/24 09/17/24 Rx topical cream cholecalciferol (vitamin D3) 1,250 1,250 mcg PO WEEKLY #12 caps 06/10/24 09/17/24 Rx mcg (50,000 unit) capsule gabapentin 100 mg capsule 100 mg PO TID #90 caps 08/19/24 10/01/24 Rx albuterol sulfate 90 mcg/actuation 2 puff inhalation PRN WHEEZING 09/17/24 10/01/24 History aerosol inhaler cholecalciferol (vitamin D3) 25 25 mcg PO DAILY 09/17/24 09/17/24 History mcg (1,000 unit) capsule cyanocobalamin (vitamin B-12) 1,000 mcg PO DAILY 09/17/24 09/17/24 History 1,000 mcg capsule glucosamine-chondroitin 250 mg-200 1 tablet PO DAILY 09/17/24 09/17/24 History mg tablet (Osteo Bi-Flex) magnesium 250 mg tablet 250 mg PO DAILY 09/17/24 09/17/24 History milk thistle 175 mg capsule 175 mg PO DAILY 09/17/24 09/17/24 History turmeric 400 mg capsule 1,000 mg PO DAILY 09/17/24 09/17/24 History Patient hx anesthesia problems: none Family hx anesthesia problems: none Results Review: All pre-operative results and documents have been reviewed as part of the pre-operative evaluation. [facility] Past Medical History Medical History Asthma Acid reflux Anxiety Migraines Allergies Surgical History Surgical History H/O breast biopsy Hx of tonsillectomy History of hernia repair Family History Family History Mother Rheumatoid arthritis Dementia COPD (chronic obstructive pulmonary disease) Hyperlipidemia Father Cancer Grandparent Diabetes mellitus Sibling Thyroid disorder Rheumatoid arthritis Hyperlipidemia Social History Social History Smoking status: Never smoker Alcohol intake: never Substance use: never Substance use type: does not use Do You Feel Safe in your Home?: Yes Lack of Transportation: No Lack of Food: Never True Current Housing: I Have Housing Concerned About Future Housing: No Difficulty Paying Gas/Electric Bills: No Difficulty Paying for Meds: No Currently Unemployed: No Education: High School Diploma/GED Difficulty w/ Childcare or Family Care: No Living arrangements: with family Spiritual care concerns: No Anes - Eval Final PreProcedure Day of Procedure 10/01/24 13:14 Patient weight: obese Heart: regular rate and rhythm Lungs: clear to auscultation Airway: Mallampati scale class III Neurological: alert and oriented Last oral intake: >/= 8 hours ASA classification: III Emergent: no Anesthetic plan: proceed Anesthesia type and monitoring: general ETT and standard monitoring Results Review: All pre-operative results and documents have been reviewed as part of the pre-operative evaluation. Informed Consent: The patient's anesthetic plan and its attendant risks and benefits were discussed with the patient/family/POA. Questions were solicited and answers provided to the satisfaction of the patient/family/POA.
--- NOTE | 2024-10-01 13:16 | PM.IMHP ---
H&P: HPI History of Present Illness Date/Time: 10/01/24 13:16 Chief Complaint: back and leg pain Narrative: Christen is a 69-year-old female with several month history of problems related to her back and left lower extremity. This began in February with a lifting and twisting episode and her experiencing the abrupt onset of left lower extremity discomfort which radiated to the side of the foot and the bottom of the foot. This is with her at all times and may be worse with some activities or prolonged postures. She continues to have at at night and has difficulty sleeping at night and it is painful when she wakes up in the morning. She does not report specific muscle group weakness or dermatomal numbness. She is not having bowel or bladder difficulty. She has undergone an injection which helped her for a temporary amount of time. Review of Systems Review of Systems: All systems reviewed & are unremarkable except as noted in HPI and below Denies chills, Denies fever, Denies weight gain and Denies weight loss Eyes Denies change in vision and Denies diplopia ENT Denies disequilibrium Card Denies chest pain and Denies dyspnea Resp Denies cough and Denies dyspnea GI Denies abdominal pain, Denies change in bowel habits, Denies fecal incontinence and Denies vomiting Denies hematuria, Denies oliguria, Denies difficulty urinating, Denies dysuria, Denies urinary frequency, Denies urinary hesitancy, Denies urinary incontinence and Denies urinary urgency Musc Reports as per HPI Skin/ Breast Reports system reviewed and no additional complaints, except as documented Neuro Reports as per HPI Psych Reports no additional complaints, Denies depression and Denies hopelessness Endo Reports no additional complaints and Denies polyuria Amilcar/ Lymph Reports no additional complaints Aller/ Immun Reports no additional complaints PMFSH Past Medical History Medical History Asthma Acid reflux Anxiety Migraines Allergies Surgical History Surgical History H/O breast biopsy Hx of tonsillectomy History of hernia repair Family History Family History Mother Rheumatoid arthritis Dementia COPD (chronic obstructive pulmonary disease) Hyperlipidemia Father Cancer Grandparent Diabetes mellitus Sibling Thyroid disorder Rheumatoid arthritis Hyperlipidemia Social History Social History Smoking status: Never smoker Alcohol intake: never Substance use: never Substance use type: does not use Do You Feel Safe in your Home?: Yes Lack of Transportation: No Lack of Food: Never True Current Housing: I Have Housing Concerned About Future Housing: No Difficulty Paying Gas/Electric Bills: No Difficulty Paying for Meds: No Currently Unemployed: No Education: High School Diploma/GED Difficulty w/ Childcare or Family Care: No Living arrangements: with family Spiritual care concerns: No Meds Home Medications and Allergies Home Medications ?Medication ?Instructions ?Recorded ?Confirmed ?Type trazodone 50 mg tablet 50 mg PO QHS PRN insomnia #30 tabs 02/06/23 09/17/24 Rx montelukast 10 mg tablet 10 mg PO DAILY #90 tabs 08/02/23 09/17/24 Rx (Singulair) zinc acetate 25 mg (zinc) capsule 25 mg PO DAILY 08/02/23 09/17/24 History (Galzin) triamcinolone acetonide 0.1 % 1 applic topical BID #80 grams 02/04/24 09/17/24 Rx topical cream cholecalciferol (vitamin D3) 1,250 1,250 mcg PO WEEKLY #12 caps 06/10/24 09/17/24 Rx mcg (50,000 unit) capsule gabapentin 100 mg capsule 100 mg PO TID #90 caps 08/19/24 10/01/24 Rx albuterol sulfate 90 mcg/actuation 2 puff inhalation PRN WHEEZING 09/17/24 10/01/24 History aerosol inhaler cholecalciferol (vitamin D3) 25 25 mcg PO DAILY 09/17/24 09/17/24 History mcg (1,000 unit) capsule cyanocobalamin (vitamin B-12) 1,000 mcg PO DAILY 09/17/24 09/17/24 History 1,000 mcg capsule glucosamine-chondroitin 250 mg-200 1 tablet PO DAILY 09/17/24 09/17/24 History mg tablet (Osteo Bi-Flex) magnesium 250 mg tablet 250 mg PO DAILY 09/17/24 09/17/24 History milk thistle 175 mg capsule 175 mg PO DAILY 09/17/24 09/17/24 History turmeric 400 mg capsule 1,000 mg PO DAILY 09/17/24 09/17/24 History Allergies Allergy/AdvReac Type Severity Reaction Status Date / Time fexofenadine (From Jennifer) Allergy Mild Hives Verified 10/01/24 12:35 Vital Signs Vital Signs - 24 hr 10/01/24 12:39 Temperature 97.8 F Pulse Rate 76 Blood Pressure 158/82 H Pulse Oximetry 99 Oxygen Delivery Room Air Exam Narrative: General: cooperative, no acute distress, well developed, alert and awake Orientation/Consciousness: oriented to person, oriented to place and oriented to time Constitutional Limitations: no limitations Other: The patient is a normally developed, normal appearing male sitting on the examination table in no acute distress. He is awake, alert, and oriented x3 with good fund of knowledge, recall of events, and fluent speech. HENMT Head: normocephalic and atraumatic Ears: external ears normal Face/Nose/Sinus: Normal external nose present Eyes Eyelids: eyelids normal Pupils: Yes Pupils normal by confrontation EOM: EOMs intact bilaterally Neck General: Yes no meningeal signs, Yes supple and Yes no JVD Resp Effort/Inspection: normal respiratory effort and able to speak in complete sentences Cardio Rate: Yes regular rate GI Inspection: No abdominal distension Musc Other: Examination of the back reveals no tenderness. Range of motion of the back is full without pain in forward flexion, extension, and lateral rotation to both sides. Straight leg raise is negative bilaterally. Charlie?s test is negative bilaterally. Skin General: normal color Neuro General: Yes oriented to person, Yes oriented to place, Yes oriented to time, Yes normal cognition and Yes no meningeal signs Cranial Nerves: Yes CN's II-XII intact bilaterally Other: Motor: Strength is normal, 5/5, throughout all muscle groups of the bilateral lower extremities to direct confrontation. Sensory: Sensation is intact to light touch throughout the and lower extremities bilaterally. Reflexes: Deep tendon reflexes are difficult to elicit the knees or ankles bilaterally. Gait: Gait, station, and transfers are independent and steady for short periods of time and over short distances. Psych Appearance: grossly normal Mental status: Yes mental status grossly normal Mood: congruent mood Affect: Yes normal affect Speech/Movement: Normal speech and movement present Attitude: Yes cooperative Thought Content: Normal thought content present Review of studies: MRI of the lumbar spine was personally reviewed by me and demonstrates spondylosis and mild lateral recess stenosis at multiple levels. Of most pertinent is a disc herniation which is subarticular on the left at L5-S1 compressing the traversing S1 nerve root. Assessment and Plan Assessment and plan (1) Lumbar disc herniation: Code(s): M51.26 - Other intervertebral disc displacement, lumbar region Status: Acute Plan Elly is a 69-year-old female with back and left lower extremity discomfort related to a disc herniation on the left at L5-S1 which is subarticular. I recommended her a left L5-S1 microscopic lumbar diskectomy and described to her that operation, its risks, potential benefits, the operative and postoperative course in detail and answered all her questions personally. We discussed risks including but not limited to permanent neurologic deficit secondary to nerve root injury, need for reoperation secondary to infection, bleeding, CSF leak, adjacent level disease, recurrent residual pathology or instability, failure of the procedure to relieve her pain or symptoms, persistent pain, medical complications related anesthesia or surgery, etc.. She indicates understanding and elects to proceed with that operation.
--- NOTE | 2024-10-01 13:18 | WPDHPUPDATE1 ---
History and Physical Update Update Date/Time: 10/01/24 13:18 History and Physical has been reviewed, including an updated exam of the patient. There are NO changes in the patient's condition. Risks, benefits, and alternatives have been discussed and questions answered. Patient agrees to proceed with procedure.
[2024-10-01] MEDS: ceFAZolin 2 GM/D5W 50 ML 2 GM/50 ML BAG IVPB (13:29)
[2024-10-01] MEDS: LIDO 1%/EPINEPHRINE 1:100,000 20 ML VIAL 10 ML INFILTRATE (14:07)
--- NOTE | 2024-10-01 14:50 | W.PM.PROC2 ---
Procedure Note - Detailed Date of Procedure 10/01/24 Pre-op Diagnosis left L5-S1 herniated nucleous pulposis Post-op Diagnosis Same Procedure Performed Left L5-S1 microscopic lumbar diskectomy Surgeon Jae Bernal MD Anesthesia General Description of Procedure The patient was brought to the operating room in supine position, was sedated, intubated placed under general anesthesia in routine fashion. She was then turned into the prone position on a Scott frame. The of operation her back was examined, marked for incision, prepped and draped in routine sterile fashion. Incision was marked with the L5 and S1 spinous processes in the midline. This area was injected with 0.5% lidocaine with [id number] epinephrine. Intravenous antibiotics given prior to incision. Incision was made with a 10 blade scalpel down to the lumbodorsal fascia. A subperiosteal dissection of the muscle soft tissue away from spinous process and lamina at L5 and S1 on the left was performed with a subperiosteal elevator and Bovie cautery. A verifying x-rays obtained to verify the level of operation. At L5-S1 on the left Midas-Kevin drill was used to perform a hemilaminectomy and medial facetectomy. Under microscopy the yellow ligament was lifted removed piecemeal using Kerrison punches. The thecal sac was retracted medially exposing free and subligamentous disc herniation. The ligament was entered using an 11 blade scalpel. An Ryan curette, curved curette and Gentile rongeur were used push free and removed fragments of herniated disc from beneath the nerve. There was a piece was adherent to the underside of the nerve. This was carefully dissected free of the nerve using a nerve hook. It was removed. These maneuvers were performed until a Montcalm instrument could be placed in the ventral epidural space above below the nerve root out the foramen to confirm lack of compression. The wound was then copiously irrigated with bacitracin irrigation all bleeding stopped with bipolar Bovie cautery and Gelfoam thrombin powder. The wound was then closed in layered fashion with 2-0 Vicryl interrupted sutures in the lumbodorsal fascia and Karen's layer. 3-0 Vicryl buried interrupted sutures were placed in the dermis and the skin was closed with a running 4-0 Monocryl subcuticular stitch and dressed with Dermabond. Patient was allowed to wake up in the operating room and was taken to the recovery room in stable condition. There were no immediate complications of this operation. All counts reported correct at the end the case. Blood loss was 10 cc. The patient was neurologically at her baseline postoperatively. CPT codes: 51085, 08165 Estimated Blood Loss 10 Complications None Condition Stable Disposition PACU [facility] Billing Surgery - Charge Forward: Surgery Billing
[2024-10-01] MEDS: fentaNYL CITRATE INJ (*CRX) 100 MCG/2 ML VIAL 25 MCG IV PUSH ×4 (15:00→15:45)
[2024-10-01] MEDS: oxyCODONE HCL (*CRX) 5 MG TAB IR PO (16:16)
== END 2024-10-01 16:55 | disposition home or self-care (01) ==
PROVIDERS: PCP Nurse Practitioner Adult Health; Visit Provider Neurological Surgery
PROC: (CPT 63005; principal; 2024-10-01 13:00)
DX: M51.27 Other intervertebral disc displacement, lumbosacral region (principal)
CPT/HCPCS: 63030; 99199; A9270; J0330; J0690; J1100; J2004; J2405; J2704; J3010; J7120

== ENCOUNTER 2025-01-01 10:51 | Emergency (ER) | payer OTHER, SELFPAY ==
--- OUTSIDE RECORDS SUMMARY | 2025-01-01 10:58 | XMS_ITS | Continuity of Care Document ---
Author Organization [facility] Address [address] [place] [address] [address] [place] [address] Phone Care Team Providers Care Sampler And Test Preparer Name Role Phone Dai Mary OD Unavailable Unavailable Allergies, Adverse Reactions, Alerts Substance Reaction Status Criticality No Known Allergies Active No Inform ation Medications Medication Instructions Dosage Effective Dates (start - stop) Status Comments zinc 50 mg tablet take one tablet daily - Active Vitamin C 100 mg tablet take one tablet daily - Active Vitamin D3 50 mcg (2,000 unit) capsule take one tablet daily - Active Vitamin B-12 250 mcg tablet take one tablet daily - Active Sudafed 30 mg tablet take 2 tablet by or al route every 4 - 6 hours as needed not to exceed 8 tablets per 24hrs 60 MG - Active Calcium 500 500 mg calcium (1,250 mg) tablet take one tablet daily - Active albuterol sulfate HFA 90 mcg/actuation aerosol inhaler inhale 2 puff by inhalation route every 4 - 6 hours as needed 180 MCG - Active AirDuo Digihaler 113 mcg-14 mcg/actuation breath act,powder sensor inhale 1 puff by inhalation route 2 times every day approximately 12 hours apart at the same times each day - Active Procedures Procedure Date Refraction No Charge Optomap Fundus Photos 022 Office/outpatient Visit, New Advance Directives Directive Yes / No Effective Date File Name No Information Encounters Encounter Description Practice Location Reason(s) For Visit Diagnoses Date Provider Providers Copied on Encounter Office/outpa tient Visit, [facility], [address], [place], [place], [address], tel:[phone] [address] [place] Professional Complete exam (chief complaint) Combined forms of age-related cataract, bilateralOcula r hypertension, bilateralAdhes ion of pupillary membrane of both eyes [address]. [address], [address], [place], [place], [address], [place]. tel:[phone] Referring Provider: Dai Mary OD [place], [address], [place], [address] . tel:[phone] Family History Family Member Type Diagnosis Age At Onset Problem Family history of Diabetes m lizettesumit Payers Payer name Insurance type Covered libertarian ID Aline antonio(s) [employer] Claims [id number] Social History Type Description Quantity Date Captured [...]
--- OUTSIDE RECORDS SUMMARY | 2025-01-01 10:58 | XMS_ITS | Clinical Summary ---
Author Organization [facility] [employer] Address [address] [place] [address] Care Team Providers Care Print Press Operator Name Role Phone Amor Frazier MD Primary Care Provider [phone] Source Comments [facility] [employer],non-owned Affiliates and Associated Physician Practices is amultiple site organization consisting of ambulatory clinics and hospital sitesin [place], [place], [place] and [place]. This disclosure is being madepursuant to the Care Everywhere program and may not contain all information available regarding this patient. Last updated 18.[facility] [employer] Allergies Active Allergy Reactions Criticality Noted Date Comments Fexofenadine Unknown 10/07/2017 Medications * Be aware that medications may not be up to date on this document. Alwaysverify current medications with the patient. montelukast (Singulair) 10 MG tablet Take 1 [...] drink = 0.6 oz pur e alcohol) Comments No Sex and Gender Information Value Date Recorded Sex Assigned at Not on file Legal Sex Female 9:06 AM CDT Gender Identity Not on file Sexual Orientation [...] 9:30 AM CDT Height 167.6 cm (5' 6) 04/26/2023 9:30 AM CDT Body Mass Index [...] 2023-2 5 season) 2024 DEPRESSION SCREENING 06/24/2024 INFLUENZA VACCINE (Season Ended) 2025 SCREENING FOR [...] 7 - 26 mg/dL 04/26/2023 12:13 PM [facility] Creatinine 0.82 0.56 - 0.96 mg/dL 04/26/2023 12:13 PM [facility] Sodium 142 136 - 145 mmol/L 04/26/2023 12:13 PM [facility] Potassium 4.0 3.5 - 4.5 mmol/L 04/26/2023 12:13 PM [facility] Chloride 108(H) 98 - 107 mmol/L 04/26/2023 12:13 PM [facility] CO2 27 22 - 29 mmol/L 04/26/2023 12:13 PM [facility] Glucose 97 70 - 115 mg/dL 04/26/2023 12:13 PM [facility] Calcium 9.7 8.4 - 10.2 mg/dL 04/26/2023 12:13 PM [facility] Protein Total 7.5 6.0 - 8.3 g/dL 04/26/2023 12:13 PM [facility] Albumin 4.1 3.4 - 5.0 g/dL 04/26/2023 12:13 PM [facility] Bilirubin Total 0.6 0.2 - 1.2 mg/dL 04/26/2023 12:13 PM [facility] Alkaline Phosphatase 111 40 - 150 U/L 04/26/2023 12:13 PM [facility] ALT 27 5 - 55 U/L 04/26/2023 12:13 PM [facility] AST 24 5 - 34 U/L 04/26/2023 12:13 PM [facility] Anion Gap 7 6 - 16 04/26/2023 12:13 PM [facility] BUN/Creatinine Ratio 20 7 - 23 04/26/2023 12:13 PM [facility] Osmolality Calculated 295 275 - 295 mOsm/kg 04/26/2023 12:13 PM [facility] Albumin/Globulin Ratio 1.2 1.1 - 2.3 04/26/2023 12:13 PM [facility] eGFR by CKD-EPI 78(L) >=90 mL/min/1.7 3 m2 04/26/2023 12:13 PM [facility] Blood BLOOD SPECIMEN / Unknown Lab Venipuncture / Unknown 04/26/2023 11:31 AM CDT 04/26/2023 11:47 AM CDT Rachel Elise SOIL FERTILITY EXTENSION SPECIALIST-METAL FURNITURE ASSEMBLY SUPERVISOR LAB - CHEMISTRY KALA FERNANDEZ Final Result [facility] [address] [place] [address], [facility] [phone] from Last 3 Months or Most Recently Relevant to Health Maintenance Insurance [facility] MEDICARE Care Teams Print Press Operator Relationship Specialty Start Date End Date Amor Frazier MD [address] [place] [id number] PCP - General Family Medicine 04/26/23
[2025-01-01 11:00] VITALS: BP 135/64; PULSE 72; RESP 16; TEMP 37.1; O2SAT 98
--- OUTSIDE RECORDS SUMMARY | 2025-01-01 11:00 | XMS_ITS | Continuity of Care Document ---
Author Organization [facility] Address [address] [place] [address] [address] [place] [address] Phone Care Team Providers Care Information Architect Name Role Phone Dai Mary OD Unavailable [...] Copied on Encounter Office/outpa tient Visit, [facility], [address], [place], [place], [id number], tel:[phone] [address] [place] Professional Complete exam (chief complaint) Combined forms of age-related cataract, bilateralOcula r hypertension, bilateralAdhes ion of pupillary membrane of both eyes [address]. [address], [address], [place], [place], [address], [place]. tel:[phone] Referring Provider: Dai Mary OD [place], [address], [place], [address] . tel:[phone] Family History Family Member Type Diagnosis Age At Onset Problem Family history of Diabetes m lizettesumit Payers Payer name Insurance type Covered constitution party ID Aline antonio(s) [employer] Claims [id number] Social History Type Description Quantity Date Captured [...]
--- NOTE | 2025-01-01 11:55 | ED.SKABFB ---
HPI - Skin/Abscess/Foreign Bdy General Chief complaint: Skin/Abscess/Foreign Body Stated complaint: Rash Time Seen by Provider: 01/01/25 11:30 Source: patient and RN notes reviewed Mode of arrival: ambulatory Limitations: no limitations History of Present Illness HPI narrative: 69-year-old female presents Express Care complaining insect bites to her face and neck in a rash in her abdomen. Patient said both showed upper proximally 2 weeks ago. Patient says she please use bit by now it is inside her home. Patient reports both rashes or pruritic patient has not tried any [id number] to help with symptoms other than Benadryl. Patient has any fevers, body aches, chills, nausea, vomiting, difficulty breathing, chest pains, swelling to her face, lips, or throat,. Related Data Home Medications ?Medication ?Instructions ?Recorded ?Confirmed ?Last Taken ?Type zinc acetate 25 mg (zinc) capsule 25 mg PO DAILY 08/02/23 12/09/24 Unknown History (Galzin) albuterol sulfate 90 mcg/actuation 2 puff inhalation PRN WHEEZING 09/17/24 12/09/24 10/01/24 History aerosol inhaler cyanocobalamin (vitamin B-12) 1,000 mcg PO DAILY 09/17/24 12/09/24 Unknown History 1,000 mcg capsule glucosamine-chondroitin 250 mg-200 1 tablet PO DAILY 09/17/24 12/09/24 Unknown History mg tablet (Osteo Bi-Flex) magnesium 250 mg tablet 250 mg PO DAILY 09/17/24 12/09/24 Unknown History milk thistle 175 mg capsule 175 mg PO DAILY 09/17/24 12/09/24 Unknown History turmeric 400 mg capsule 1,000 mg PO DAILY 09/17/24 12/09/24 Unknown History Allergies Allergy/AdvReac Type Severity Reaction Status Date / Time fexofenadine (From Jennifer) Allergy Mild Hives Verified 12/09/24 09:28 Review of Systems Review of Systems: CONSTITUTIONAL: Denies fever, chills, or sweats. EYES: Denies visual changes, redness, or discharge. ENT: Denies rhinorrhea, congestion, sore throat, or otalgia. CARDIOVASCULAR: Denies chest pain, palpitations, or edema. RESPIRATORY: Denies cough or dyspnea. GASTROINTESTINAL: Denies abdominal pain, nausea, vomiting, or diarrhea. GENITOURINARY: Denies dysuria or hematuria. SKIN: Positive for rash or itching. MUSCULOSKELETAL: Denies back pain, joint pain, or myalgia. NEUROLOGIC: Denies headache, numbness, or weakness. PSYCHIATRIC: Denies anxiety or depression. All other systems reviewed are negative, except as documented in HPI. [facility] Past Medical History Medical History Lumbar radicular pain Asthma Acid reflux Anxiety Migraines Allergies Surgical History Surgical History H/O breast biopsy Hx of tonsillectomy History of hernia repair Family History Family History Mother Rheumatoid arthritis Dementia COPD (chronic obstructive pulmonary disease) Hyperlipidemia Father Cancer Grandparent Diabetes mellitus Sibling Thyroid disorder Rheumatoid arthritis Hyperlipidemia Social History Social History Smoking status: Never smoker Alcohol intake: never Substance use: never Substance use type: does not use Do You Feel Safe in your Home?: Yes Lack of Transportation: No Lack of Food: Never True Current Housing: I Have Housing Concerned About Future Housing: No Difficulty Paying Gas/Electric Bills: No Difficulty Paying for Meds: No Currently Unemployed: No Education: High School Diploma/GED Difficulty w/ Childcare or Family Care: No Living arrangements: with family Spiritual care concerns: No Comments At the time of my signature, I reviewed and agree with the nursing past medical, surgical, social, and family history. There is no relevant family history pertinent to the patient complaint. Exam Narrative: GENERAL: This is a well-nourished, well-developed adult, in no apparent distress. They are non ill-appearing, nontoxic appearing. HEAD: normocephalic, atraumatic. EYES: Sclera clear/white. Conjunctiva normal. Vision is grossly intact. Extraocular movements intact EARS: External ears normal, hearing grossly intact NOSE: External nose normal THROAT: Mucous membranes moist, NECK: Neck supple, CARDIOVASCULAR: Regular rate and rhythm RESPIRATORY: Respiratory rate normal, respiratory effort nonlabored, no respiratory distress SKIN: There is mild erythematous pruritic, papular rash with puncture wound present to the patient's left lower face extending into her neck. Rash is nontender to palpate, no exudate, no induration, no area of fluctuance. Skin is not hot to touch. There is also a linear pruritic erythematous rash to the pannus line under the patient's abdomen, no satellite lesions, wound appears moist and glistening, no exudate, no induration, no area of fluctuance, rashes nontender, rash is not hot to touch. NEURO: awake, alert, and oriented to person, place and time. There were no obvious focal neurologic abnormalities. EXTREMITIES: No joint tenderness, effusion, or edema noted. Course Course Emergency Course: Portions of this record may have been created with voice recognition software Level of Care: Express Care Visit Vital Signs Vital signs: Vital Signs Temperature 98.8 F 01/01/25 11:00 Pulse Rate 72 01/01/25 11:00 Respiratory Rate 16 01/01/25 11:00 Blood Pressure 135/64 01/01/25 11:00 Pulse Oximetry 98 01/01/25 11:00 Oxygen Delivery Room Air 01/01/25 11:00 Temperature 98.8 F 01/01/25 11:00 Pulse Rate 72 01/01/25 11:00 Respiratory Rate 16 01/01/25 11:00 Blood Pressure 135/64 01/01/25 11:00 Pulse Oximetry 98 01/01/25 11:00 Oxygen Delivery Room Air 01/01/25 11:00 Reviewed MDM - Skin/Abscess/Foreign Bdy MDM Narrative Medical decision making narrative: Insect bites appear to be allergic reaction from bites. It was so close the patient's face, will go ahead and treat with low-dose oral steroids. Rash under patient's pannus appears to be fungal. Will treat with nystatin powder. Discussed physical exam findings. Advised supportive measures and signs/symptoms to go to the ER. Pt is appropriate for outpt treatment and f/u. Differential Diagnosis Differential diagnosis: Likely abscess of skin or subcutaneous tissue, dermatophytosis, cellulitis, eczema, insect bites and contact dermatitis Critical Care Time Critical Care Time Critical Care Time: No Discharge Plan Discharge Clinical Impression: Yeast infection of the skin Insect bite Qualifiers: Encounter type: initial encounter Site of insect bite: unspecified part of neck Qualified Code(s): S10.96XA - Insect bite of unspecified part of neck, initial encounter Patient Disposition: Home Condition: Stable Instructions: Insect Bite or Sting (ED), Skin Yeast Infection (ED) Additional Instructions: Take the steroids as directed, take in the morning take with food. Use the nystatin powder as directed, applied affected area near stomach. You may apply hydrocortisone cream to the insect bites near your neck, do not use longer than 2 weeks. Keep the skin under your stomach dry. Wash your skin daily with mild soap and water. Follow-up with PCP in 3-5 days. If you developed worsening symptoms, worsening redness, swelling, pain, fevers, or any other concerns please go to the ER immediately. Patient Language: [place] Prescriptions: New nystatin 100,000 unit/gram powder 1 applic topical TID 14 Days Qty: 60 0RF Rx Instructions: Apply to affected area prednisone 20 mg tablet 20 mg PO DAILY 5 Days Qty: 5 0RF No Action Galzin 25 mg (zinc) capsule 25 mg PO DAILY Patient Comments: TAKES 50 MG DAILY furosemide 20 mg tablet 20 mg PO QAM PRN (Reason: edema) Qty: 10 0RF albuterol sulfate 90 mcg/actuation HFA aerosol inhaler 2 puff INHALATION PRN magnesium 250 mg tablet 250 mg PO DAILY turmeric 400 mg capsule 1,000 mg PO DAILY cyanocobalamin (vitamin B-12) 1,000 mcg capsule 1,000 mcg PO DAILY milk thistle 175 mg capsule 175 mg PO DAILY Rx Instructions: give with meal/snack glucosamine-chondroitin [Osteo Bi-Flex] 250-200 mg tablet 1 tablet PO DAILY Rx Instructions: give after food/meal montelukast [Singulair] 10 mg tablet 10 mg PO DAILY Qty: 90 1RF Follow-up/Referrals: Noreen Hawk APRN [Primary Care Provider] - Time of Disposition: 11:39
== END 2025-01-01 11:47 | disposition home or self-care (01) ==
PROVIDERS: PCP Nurse Practitioner Adult Health
DX: B37.2 Candidiasis of skin and nail (principal); S10.96XA Insect bite of unspecified part of neck, initial encounter; W57.XXXA Bitten or stung by nonvenomous insect and other nonvenomous arthropods, initial encounter
CPT/HCPCS: 99213; G0463

== ENCOUNTER 2025-02-15 08:58 | Emergency (ER) | payer OTHER, SELFPAY ==
--- OUTSIDE RECORDS SUMMARY | 2021-07-11 08:00 | XMS_ITS | Continuity of Care Document ---
Author Organization [facility] Address [address] [place] [address] [address] [place] [address] Phone Care Team Providers Care X Ray Tech Name Role Phone Dai Mary OD Unavailable [...] Copied on Encounter Office/outpa tient Visit, [facility], [address], [place], [place], [id number], tel:[phone] [address] [place] Professional Complete exam (chief complaint) Combined forms of age-related cataract, bilateralOcula r hypertension, bilateralAdhes ion of pupillary membrane of both eyes [address]. [address], [address], [place], [place], [address], [place]. tel:[phone] Referring Provider: Dai Mary OD [facility], [address], [place], [address] . tel:[phone] Family History Family Member Type Diagnosis Age At Onset Problem Family history of Diabetes m lizettesumit Payers Payer name Insurance type Covered constitution party ID Aline antonio(s) [employer] Claims [id number] Social History Type Description Quantity Date Captured [...] PCP is Dr. Amor Frazier, not in [facility]. Reason For Referral Reason For Referral No [...]
--- OUTSIDE RECORDS SUMMARY | 2021-07-11 08:00 | XMS_ITS | Continuity of Care Document ---
Author Organization [facility] Address [address] [place] [address] [address] [place] [address] Phone Care Team Providers Care Distribution Manager Name Role Phone Dai Mary OD Unavailable [...] Copied on Encounter Office/outpa tient Visit, [facility], [address], [place], [place], [address], tel:[phone] [address] [place] Professional Complete exam (chief complaint) Combined forms of age-related cataract, bilateralOcula r hypertension, bilateralAdhes ion of pupillary membrane of both eyes [address]. [address], [address], [place], [place], [address], [place]. tel:[phone] Referring Provider: Dai Mary OD [place], [address], [place], [address] . tel:[phone] Family History Family Member Type Diagnosis Age At Onset Problem Family history of Diabetes m lizettesumit Payers Payer name Insurance type Covered republican ID Aline antonio(s) [employer] Claims [id number] Social History Type Description Quantity Date Captured [...] PCP is Dr. Amor Frazier, not in [facility]. Reason For Referral Reason For Referral No [...]
[2025-02-15 09:02] VITALS: BP 166/67; PULSE 71; RESP 20; TEMP 36.7; O2SAT 98
--- OUTSIDE RECORDS SUMMARY | 2025-02-15 09:29 | XMS_ITS | Clinical Summary ---
Author Organization [facility] Address [address] [place] [address] Care Team Providers Care Event Specialist Name Role Phone Amor Frazier MD Primary Care Provider [phone] Source Comments [facility],non-owned Affiliates and Associated Physician Practices is amultiple site organization consisting of ambulatory clinics and hospital sitesin [place], [place], [place] and [place]. This disclosure is being madepursuant to the Care Everywhere program and may not contain all information available regarding this patient. Last updated 18.[facility] Allergies Active Allergy Reactions Criticality Noted Date [...] VACCINE (1 of 2) 2005 COVID-19 VACCINE (1 - 2023-2 5 season) 2024 DEPRESSION SCREENING 06/24/2024 INFLUENZA VACCINE (#1) 2025 SCREENING FOR DIABETES 04/26/2026 04/26/2023 Respiratory [...] 7 - 26 mg/dL 04/26/2023 12:13 PM [facility] Creatinine 0.82 0.56 - 0.96 mg/dL 04/26/2023 12:13 PM [facility] Sodium 142 136 - 145 mmol/L 04/26/2023 12:13 PM [facility] Potassium 4.0 3.5 - 4.5 mmol/L 04/26/2023 12:13 PM [facility] Chloride 108(H) 98 - 107 mmol/L 04/26/2023 12:13 PM [facility] CO2 27 22 - 29 mmol/L 04/26/2023 12:13 PM [facility] Glucose 97 70 - 115 mg/dL 04/26/2023 12:13 PM [facility] Calcium 9.7 8.4 - 10.2 mg/dL 04/26/2023 12:13 PM [facility] Protein Total 7.5 6.0 - 8.3 g/dL 04/26/2023 12:13 PM [facility] Albumin 4.1 3.4 - 5.0 g/dL 04/26/2023 12:13 PM [facility] Bilirubin Total 0.6 0.2 - 1.2 mg/dL 04/26/2023 12:13 PM [facility] Alkaline Phosphatase 111 40 - 150 U/L 04/26/2023 12:13 PM [facility] ALT 27 5 - 55 U/L 04/26/2023 12:13 PM [facility] AST 24 5 - 34 U/L 04/26/2023 12:13 PM [facility] Anion Gap 7 6 - 16 04/26/2023 12:13 PM [facility] BUN/Creatinine Ratio 20 7 - 23 04/26/2023 12:13 PM [facility] Osmolality Calculated 295 275 - 295 mOsm/kg 04/26/2023 12:13 PM [facility] Albumin/Globulin Ratio 1.2 1.1 - 2.3 04/26/2023 12:13 PM [facility] eGFR by CKD-EPI 78(L) >=90 mL/min/1.7 3 m2 04/26/2023 12:13 PM [facility] Blood BLOOD SPECIMEN / Unknown Lab Venipuncture / Unknown 04/26/2023 11:31 AM CDT 04/26/2023 11:47 AM CDT Rachel Elise PROCUREMENT REPRESENTATIVE-PROPELLER MECHANIC LAB - CHEMISTRY KALA FERNANDEZ Final Result [facility] [address] [place] [address], [facility] [phone] from Last 3 Months or Most Recently Relevant to Health Maintenance Insurance [facility] MEDICARE Member Subscriber Plan / Payer (Ef fective 2022-Present) Name:Christen Hunter Relation to Subscriber:Self Name:Christen Hunter Payer ID:[id number] (NAIC) Type:Medicare-Managed Care Address: [address] [address] Care Teams Event Specialist Relationship Specialty Start Date End Date Amor Frazier MD [address] [place] [phone] PCP - General Family Medicine 04/26/23
--- NOTE | 2025-02-15 09:31 | ED.EYEPROB ---
HPI - Eye Problem General Chief complaint: Eye Problems Stated complaint: Rash/Right Eye Source: patient Mode of arrival: ambulatory Limitations: no limitations History of Present Illness HPI Narrative: 69 y/o female presented for c/o itching, swelling and redness around the right eye. Onset yesterday. Took Benadryl last night. Admits symptoms started after working outside in the yard. Denies vision changes, eye drainage, headache, pain or drainage to the rash. Denies lip, tongue, or throat swelling, shortness of breath or wheezing. Denies changes to soap, detergent, lotion, or any other exposures. No one else in the house or any contacts with similar symptoms. MD chief complaint: eye pain Related Data Home Medications ?Medication ?Instructions ?Recorded ?Confirmed ?Last Taken ?Type zinc acetate 25 mg (zinc) capsule 25 mg PO DAILY 08/02/23 12/09/24 Unknown History (Galzin) albuterol sulfate 90 mcg/actuation 2 puff inhalation PRN WHEEZING 09/17/24 02/15/25 10/01/24 History aerosol inhaler Held on 02/15/25. Instructions: .Provider Order cyanocobalamin (vitamin B-12) 1,000 mcg PO DAILY 09/17/24 12/09/24 Unknown History 1,000 mcg capsule glucosamine-chondroitin 250 mg-200 1 tablet PO DAILY 09/17/24 12/09/24 Unknown History mg tablet (Osteo Bi-Flex) magnesium 250 mg tablet 250 mg PO DAILY 09/17/24 12/09/24 Unknown History milk thistle 175 mg capsule 175 mg PO DAILY 09/17/24 12/09/24 Unknown History turmeric 400 mg capsule 1,000 mg PO DAILY 09/17/24 12/09/24 Unknown History Allergies Allergy/AdvReac Type Severity Reaction Status Date / Time fexofenadine (From Jennifer) Allergy Mild Hives Verified 12/09/24 09:28 Review of Systems Review of Systems: CONSTITUTIONAL: Denies body aches, fever, chills EYES:Endorses swelling, redness and itching to right eye; Denies visual changes FB sensation, photophobia ENT: Denies rhinorrhea, congestion, sore throat, or otalgia. CARDIOVASCULAR: Denies chest pain, palpitations RESPIRATORY: Denies cough or dyspnea. MUSCULOSKELETAL: Denies back pain, joint pain, or myalgia. NEUROLOGIC: Denies headache, numbness, tingling, or weakness. All systems reviewed & are unremarkable except as noted in HPI and below PMFSH Past Medical History Medical History Lumbar radicular pain Asthma Acid reflux Anxiety Migraines Allergies Surgical History Surgical History H/O breast biopsy Hx of tonsillectomy History of hernia repair Family History Family History Mother Rheumatoid arthritis Dementia COPD (chronic obstructive pulmonary disease) Hyperlipidemia Father Cancer Grandparent Diabetes mellitus Sibling Thyroid disorder Rheumatoid arthritis Hyperlipidemia Social History Social History Smoking status: Never smoker Alcohol intake: never Substance use: never Substance use type: does not use Do You Feel Safe in your Home?: Yes Lack of Transportation: No Lack of Food: Never True Current Housing: I Have Housing Concerned About Future Housing: No Difficulty Paying Gas/Electric Bills: No Difficulty Paying for Meds: No Currently Unemployed: No Education: High School Diploma/GED Difficulty w/ Childcare or Family Care: No Living arrangements: with family Spiritual care concerns: No Comments At time of signature, I have reviewed and agree with nursing past medical, surgical, social and family history unless otherwise noted. Please see nursing chart for further information. There is no relevant family history pertinent to the presenting complaint Exam Narrative: GENERAL: Well-appearing HEAD: Normocephalic, atraumatic. EYES: Right lateral and lower orbit with mild swelling and erythema extending to right forehead c/w contact derm. No eye occlusion. No conjunctival injection, PERRLA, EOMI. Lid eversion shows no FB ENT: Mucous membranes pink and moist. No rhinorrhea. TMs normal bilaterally. Throat normal. Uvula midline. CHEST: Clear to auscultation. HEART: Regular rate and rhythm. SKIN: Warm, dry, no rash. Normal skin turgor. NEURO: No focal deficits. Alert and oriented x3 PSYCH: Normal affect. Course Course Emergency Course: Patient is aware of diagnosis, understands and agrees to treatment plan. Anticipatory guidance given. Patient agrees to follow-up as directed and is aware of reasons to seek care at the emergency department. Portions of this record may have been created with voice recognition software Level of Care: Express Care Visit Vital Signs Vital signs: Vital Signs Temperature 98.0 F 02/15/25 09:02 Pulse Rate 71 02/15/25 09:02 Respiratory Rate 20 02/15/25 09:02 Blood Pressure 166/67 H 02/15/25 09:02 Pulse Oximetry 98 02/15/25 09:02 Oxygen Delivery Room Air 02/15/25 09:02 Temperature 98.0 F 02/15/25 09:02 Pulse Rate 71 02/15/25 09:02 Respiratory Rate 20 02/15/25 09:02 Blood Pressure 166/67 H 02/15/25 09:02 Pulse Oximetry 98 02/15/25 09:02 Oxygen Delivery Room Air 02/15/25 09:02 MDM - Eye Problem MDM Narrative Medical decision making narrative: Discussed physical exam findings c/w contact derm to right eye area. No lip swelling or any other signs. No vesicles or pain with touch. Reviewed RX. Advised supportive measures and signs/symptoms to go to the ER. Pt is appropriate for outpt treatment and f/u. Differential Diagnosis Differential diagnosis: Likely corneal abrasion, conjunctivitis, acute iritis, periorbital cellulitis and other (shingles) Discharge Plan Discharge Clinical Impression: Allergic reaction Patient Disposition: Home Condition: Stable Instructions: Antibiotic Form, General Allergic Reaction (ED) Additional Instructions: Take steroids as directed. Benadryl every 8 hours as needed, Or you can take Zyrtec according to package directions for itching Cool compresses to the sites of itching, avoid hot water. Avoid scratching to reduce the risk of infection Follow up with your primary care provider as needed in 1 week Go to the ER for worsening symptoms or concerns (lip, tongue, throat swelling/itching, trouble breathing etc) Patient Language: Nepali Prescriptions: New methylprednisolone [Medrol (Kirby)] 4 mg tablets,dose pack See Rx Instructions .ROUTE .COMPLEX Qty: 21 0RF Rx Instructions: orally per package directions No Action Galzin 25 mg (zinc) capsule 25 mg PO DAILY Patient Comments: TAKES 50 MG DAILY albuterol sulfate 90 mcg/actuation HFA aerosol inhaler 2 puff INHALATION PRN magnesium 250 mg tablet 250 mg PO DAILY turmeric 400 mg capsule 1,000 mg PO DAILY cyanocobalamin (vitamin B-12) 1,000 mcg capsule 1,000 mcg PO DAILY milk thistle 175 mg capsule 175 mg PO DAILY Rx Instructions: give with meal/snack glucosamine-chondroitin [Osteo Bi-Flex] 250-200 mg tablet 1 tablet PO DAILY Rx Instructions: give after food/meal montelukast [Singulair] 10 mg tablet 10 mg PO DAILY Qty: 90 1RF Follow-up/Referrals: Noreen Hawk APRN [Primary Care Provider, [facility]] Time of Disposition: 09:38
== END 2025-02-15 09:43 | disposition home or self-care (01) ==
PROVIDERS: Emergency Provider Nurse Practitioner Family; PCP Nurse Practitioner Adult Health
DX: T78.40XA Allergy, unspecified, initial encounter (principal); J45.909 Unspecified asthma, uncomplicated; K21.9 Gastro-esophageal reflux disease without esophagitis
CPT/HCPCS: 99213; G0463

== ENCOUNTER 2025-03-08 12:50 | Outpatient (CLI) | payer OTHER, SELFPAY ==
--- OUTSIDE RECORDS SUMMARY | 2021-07-11 08:00 | XMS_ITS | Continuity of Care Document ---
Author Organization [facility] Address [address] [place] [address] [address] [place] [address] Phone Care Team Providers Care Occupational Rehabilitation Aide Name Role Phone Dai Mary OD Unavailable Unavailable Allergies, Adverse Reactions, Alerts Substance Reaction Status Criticality No Known Allergies Active No Inform ation Medications Medication Instructions Dosage Effective Dates (start - stop) Status Comments AirDuo Digihaler 113 mcg-14 mcg/actuation breath act,powder sensor inhale 1 puff by inhalation route 2 times every day approximately 12 hours apart at the same times each day - Active albuterol sulfate HFA 90 mcg/actuation aerosol inhaler inhale 2 puff by inhalation route every 4 - 6 hours as needed 180 MCG - Active Calcium 500 500 mg calcium (1,250 mg) tablet take one tablet daily - Active Sudafed 30 mg tablet take 2 tablet by or al route every 4 - 6 hours as needed not to exceed 8 tablets per 24hrs 60 MG - Active Vitamin B-12 250 mcg tablet take one tablet daily - Active Vitamin D3 50 mcg (2,000 unit) capsule take one tablet daily - Active Vitamin C 100 mg tablet take one tablet daily - Active zinc 50 mg tablet take one tablet daily - Active Procedures Procedure Date Refraction No Charge Optomap Fundus Photos 022 Office/outpatient Visit, New Advance Directives Directive Yes / No Effective Date File Name No Information Encounters Encounter Description Practice Location Reason(s) For Visit Diagnoses Date Provider Providers Copied on Encounter Office/outpa tient Visit, [facility], [address], [place], [place], [id number], tel:[phone] [place] Professional Complete exam (chief complaint) Combined forms of age-related cataract, bilateralOcula r hypertension, bilateralAdhes ion of pupillary membrane of both eyes [address]. [address], [address], [place], [place], [address], [place]. tel:[phone] Referring Provider: Dai Mary OD [facility], [address], [place], [address] . tel:[phone] Family History Family Member Type Diagnosis Age At Onset Problem Family history of Diabetes m lizettesumit Payers Payer name Insurance type Covered democrat ID Aline antonio(s) [employer] Claims [id number] Social History Type Description Quantity Date Captured Comments Alcohol Use Details No Caffeine Use Details Tobacco Use Status Current non-smoker Smoking Status Never smoker Non-Smoking Tobacco Use Details : No Details Available : No Details Available Sex Female Chief Complaint And Reason For Visit From encounter dated '07/11/2021 13:00'. Complete exam (chief complaint). Description: The 66 year old female presents for evaluation of Complete exam in the right eye and left eye. Pt reports TATE was 10 yrs ago. Pt denies any past ocular injuries, Sx, or Dx, OU. Pt reports OD is blurry, DV and NV, x 1 yr, with gls. Pt reports she doesn't use any gtts, OU. Pt's PCP is Dr. Amor Frazier, not in [facility]. Reason For Referral Reason For Referral No Information History Of Present Illness Encounter Date Complaint History Of Prese nt Illness Complete exam The 66 year old female presents for evaluation of Complete exam in the right eye and left eye. Pt reports TATE was 10 yrs ago. Pt denies any past ocular injuries, Sx, or Dx, OU. Pt reports OD is blurry, DV and NV, x 1 yr, with gls. Pt reports she doesn't use any gtts, OU. Pt's PCP is Dr. Amor Frazier, not in [facility]. 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
--- NOTE | ~2025-03-08 | XR_ITS ---
EXAM/ PROCEDURE: XR foot LT min 3V - 03/08/2025 12:53 CDT HISTORY: 69 years old Female with left foot numbness x 1 year COMPARISON: None available TECHNIQUE: Four view(s) FINDINGS/ IMPRESSION: There are no fractures or dislocations.Joint space narrowing, subchondral sclerosis, subchondral cyst formation and osteophyte formation, compatible with mild osteoarthritis. Calcaneal and Achilles tendon enthesopathy. Reviewed, dictated and finalized at location N.
== END 2025-03-08 12:51 | disposition home or self-care (01) ==
LOC: ANHBWCIMG 12:52
PROVIDERS: PCP Nurse Practitioner Adult Health; Visit Provider Orthopaedic Surgery
DX: M77.52 Other enthesopathy of left foot and ankle (principal)
CPT/HCPCS: 73630

== ENCOUNTER 2025-06-08 08:31 | Outpatient (CLI) | payer OTHER, SELFPAY ==
--- OUTSIDE RECORDS SUMMARY | 2025-06-08 08:58 | XMS_ITS | Clinical Summary ---
Author Organization [facility] Address [address] [place] [address] Care Team Providers Care Strategic Sourcing Specialist Name Role Phone Amor Frazier MD Primary Care Provider [phone] Source Comments [facility],non-owned Affiliates and Associated Physician Practices is amultiple site organization consisting of ambulatory clinics and hospital sitesin [place], [place], [place] and [place]. This disclosure is being madepursuant to the Care Everywhere program and may not contain all information available regarding this patient. Last updated 18.[facility] Allergies Active Allergy Reactions Criticality Noted Date [...] 2005 ZOSTER VACCINE (1 of 2) 2005 DEPRESSION SCREENING 06/24/2024 COVID-19 VACCINE (1 - 2024-2 6 season) 2025 INFLUENZA VACCINE (#1) 2025 SCREENING FOR DIABETES [...] 7 - 26 mg/dL 04/26/2023 12:13 PM [facility] Creatinine 0.82 0.56 - 0.96 mg/dL 04/26/2023 12:13 PM [facility] Sodium 142 136 - 145 mmol/L 04/26/2023 12:13 PM [facility] Potassium 4.0 3.5 - 4.5 mmol/L 04/26/2023 12:13 PM [facility] Chloride 108(H) 98 - 107 mmol/L 04/26/2023 12:13 PM [facility] CO2 27 22 - 29 mmol/L 04/26/2023 12:13 PM [facility] Glucose 97 70 - 115 mg/dL 04/26/2023 12:13 PM [facility] Calcium 9.7 8.4 - 10.2 mg/dL 04/26/2023 12:13 PM [facility] Protein Total 7.5 6.0 - 8.3 g/dL 04/26/2023 12:13 PM [facility] Albumin 4.1 3.4 - 5.0 g/dL 04/26/2023 12:13 PM [facility] Bilirubin Total 0.6 0.2 - 1.2 mg/dL 04/26/2023 12:13 PM [facility] Alkaline Phosphatase 111 40 - 150 U/L 04/26/2023 12:13 PM [facility] ALT 27 5 - 55 U/L 04/26/2023 12:13 PM [facility] AST 24 5 - 34 U/L 04/26/2023 12:13 PM [facility] Anion Gap 7 6 - 16 04/26/2023 12:13 PM [facility] BUN/Creatinine Ratio 20 7 - 23 04/26/2023 12:13 PM [facility] Osmolality Calculated 295 275 - 295 mOsm/kg 04/26/2023 12:13 PM [facility] Albumin/Globulin Ratio 1.2 1.1 - 2.3 04/26/2023 12:13 PM [facility] eGFR by CKD-EPI 78(L) >=90 mL/min/1.7 3 m2 04/26/2023 12:13 PM [facility] Blood BLOOD SPECIMEN / Unknown Lab Venipuncture / Unknown 04/26/2023 11:31 AM CDT 04/26/2023 11:47 AM CDT Rachel Elise PERSONAL INVESTMENT ADVISER-HARD CANDY SPINNER LAB - CHEMISTRY KALA FERNANDEZ Final Result [facility] [address] [place] [address], [facility] [phone] from Last 3 Months or Most Recently Relevant to Health Maintenance Insurance [facility] MEDICARE Care Teams Strategic Sourcing Specialist Relationship Specialty Start Date End Date Amor Frazier MD [address] [place] [id number] PCP - General Family Medicine 04/26/23
[2025-06-08 19:29] LABS: Alanine Aminotransferase 24 U/L (6-35); Albumin Level 4.7 g/dL (3.5-5.1); Alkaline Phosphatase 122 U/L (38-126); Anion Gap 8 mmol/L (4-12); Aspartate Amino Transferase 59 U/L (14-36); Bilirubin,Total 0.5 mg/dL (0.2-1.3); Blood Urea Nitrogen 14 mg/dL (7-17); Calcium 9.5 mg/dL (8.4-10.2); Carbon Dioxide 26 mmol/L (22-30); Chloride 103 mmol/L (98-107); Cholesterol 214 mg/dL (0-200); Estimated Glomerular Filt Rate > 60; Glucose 90 mg/dL (65-110); HDL Direct 51 mg/dL; Potassium 4.4 mmol/L (3.4-5.0); Sodium 137 mmol/L (137-145); Total Protein 8.4 g/dL (6.3-8.2); Triglycerides 277 mg/dL (<150)
[2025-06-08 19:39] LABS: Free T4 Free Thyroxine 0.80 ng/dL (0.78-2.19)
[2025-06-08 20:09] LABS: Thyroid Stimulating Hormone 2.930 uIU/mL (0.465-4.680)
== END 2025-06-08 08:32 | disposition home or self-care (01) ==
PROVIDERS: PCP Nurse Practitioner Adult Health; Visit Provider Nurse Practitioner Adult Health
DX: E78.5 Hyperlipidemia, unspecified (principal); E03.9 Hypothyroidism, unspecified
CPT/HCPCS: 36415; 80053; 80061; 84439; 84443

== ENCOUNTER 2025-06-21 11:36 | Emergency (ER) | payer OTHER, SELFPAY ==
[2025-06-21 11:47] VITALS: BP 151/62; PULSE 84; RESP 20; TEMP 36.1; O2SAT 97
[2025-06-21 11:52] VITALS: O2SAT 100
--- OUTSIDE RECORDS SUMMARY | 2025-06-21 12:15 | XMS_ITS | Clinical Summary ---
Author Organization [facility] Address [address] [address] Care Team Providers Care Managed Care Director Name Role Phone Amor Frazier MD Primary Care Provider [phone] Source Comments [facility],non-owned Affiliates and Associated Physician Practices is amultiple site organization consisting of ambulatory clinics and hospital sitesin [place], [place], [place] and [place]. This disclosure is being madepursuant to the Care Everywhere program and may not contain all information available regarding this patient. Last updated 18.[facility] Allergies Active Allergy Reactions Criticality Noted Date [...] 7 - 26 mg/dL 04/26/2023 12:13 PM [facility] Creatinine 0.82 0.56 - 0.96 mg/dL 04/26/2023 12:13 PM [facility] Sodium 142 136 - 145 mmol/L 04/26/2023 12:13 PM [facility] Potassium 4.0 3.5 - 4.5 mmol/L 04/26/2023 12:13 PM [facility] Chloride 108(H) 98 - 107 mmol/L 04/26/2023 12:13 PM [facility] CO2 27 22 - 29 mmol/L 04/26/2023 12:13 PM [facility] Glucose 97 70 - 115 mg/dL 04/26/2023 12:13 PM [facility] Calcium 9.7 8.4 - 10.2 mg/dL 04/26/2023 12:13 PM [facility] Protein Total 7.5 6.0 - 8.3 g/dL 04/26/2023 12:13 PM [facility] Albumin 4.1 3.4 - 5.0 g/dL 04/26/2023 12:13 PM [facility] Bilirubin Total 0.6 0.2 - 1.2 mg/dL 04/26/2023 12:13 PM [facility] Alkaline Phosphatase 111 40 - 150 U/L 04/26/2023 12:13 PM [facility] ALT 27 5 - 55 U/L 04/26/2023 12:13 PM [facility] AST 24 5 - 34 U/L 04/26/2023 12:13 PM [facility] Anion Gap 7 6 - 16 04/26/2023 12:13 PM [facility] BUN/Creatinine Ratio 20 7 - 23 04/26/2023 12:13 PM [facility] Osmolality Calculated 295 275 - 295 mOsm/kg 04/26/2023 12:13 PM [facility] Albumin/Globulin Ratio 1.2 1.1 - 2.3 04/26/2023 12:13 PM [facility] eGFR by CKD-EPI 78(L) >=90 mL/min/1.7 3 m2 04/26/2023 12:13 PM [facility] Blood BLOOD SPECIMEN / Unknown Lab Venipuncture / Unknown 04/26/2023 11:31 AM CDT 04/26/2023 11:47 AM CDT Rachel Elise BOILER REPAIRMAN-DATABASE MANAGEMENT SYSTEM SPECIALIST LAB - CHEMISTRY KALA FERNANDEZ Final Result [facility] [address] [place] [address], [facility] [phone] from Last 3 Months or Most Recently Relevant to Health Maintenance Insurance MEDICARE Care Teams Managed Care Director Relationship Specialty Start Date End Date Amor Frazier MD [address] [place] [id number] PCP - General Family Medicine 04/26/23
--- NOTE | 2025-06-21 12:35 | ED.EYEPROB ---
HPI - Eye Problem General Chief complaint: Eye Problems Stated complaint: Right Eye Problem Time Seen by Provider: 06/21/25 12:10 Source: patient, RN notes reviewed and old records reviewed Mode of arrival: ambulatory Limitations: no limitations History of Present Illness HPI Narrative: 70 year old female with complaints of right eye redness and swelling with watering for 2 week duration. Patient reports that she saw her PCP 1 week ago and was told to take OTC Benadryl and allergy medication. Patient reports that symptoms are worse today with increased swelling to right upper eyelid and has scaly itchy rash to lateral aspect of her right eye for 3 days now which itches. Patient does not have any sclera or conjunctiva redness or any changes in vision or pain to eye.. Patient denies any new soaps, foods, medications,make up or any new laundry products. chief complaint: eye redness and other (right eyelid swollen and dry scaly rash lateral side of right eye which is itchy.) Onset (ago): week(s) (initially started 2 weeks ago with increased symptoms today.) Onset description: gradual Duration: progressively worsening Eye Symptoms: itching and other (swelling of right upper eyelid, scaly rash to lateral side of eye 3 days, eye watering) Severity: moderate Treatments Prior to Arrival: other (Benadryl and OTC allergy pill) Related Data Home Medications ?Medication ?Instructions ?Recorded ?Confirmed ?Last Taken ?Type zinc acetate 25 mg (zinc) capsule 25 mg PO DAILY 08/02/23 06/14/25 Unknown History (Galzin) cyanocobalamin (vitamin B-12) 1,000 mcg PO DAILY 09/17/24 06/14/25 Unknown History 1,000 mcg capsule glucosamine-chondroitin 250 mg-200 1 tablet PO DAILY 09/17/24 06/14/25 Unknown History mg tablet (Osteo Bi-Flex) magnesium 250 mg tablet 250 mg PO DAILY 09/17/24 06/14/25 Unknown History milk thistle 175 mg capsule 175 mg PO DAILY 09/17/24 06/14/25 Unknown History turmeric 400 mg capsule 1,000 mg PO DAILY 09/17/24 06/14/25 Unknown History carbamazepine 200 mg mg PO 06/21/25 Unknown History tablet,extended release,12 hr Allergies Allergy/AdvReac Type Severity Reaction Status Date / Time fexofenadine (From Jennifer) Allergy Mild Hives Verified 06/21/25 11:47 Review of Systems Review of Systems: CONSTITUTIONAL: Denies fever, chills, or sweats. EYES: Denies visual changes. Reports redness to right upper eyelid with swelling, scaly itchy rash to lateral aspect of right eye which itches and eye watering with no mucoid drainage, no sclera or conjunctiva redness,, ENT: Denies rhinorrhea, congestion, sore throat, or otalgia. CARDIOVASCULAR: Denies chest pain, palpitations, or edema. RESPIRATORY: Denies cough or dyspnea. SKIN: reports rash or itching lateral aspect of right eye NEUROLOGIC: Denies headache All systems reviewed & are unremarkable except as noted in HPI and below PMFSH Past Medical History Medical History (Updated 06/22/25 @ 15:57 by Judy Sandoval APRN) Lumbar radicular pain Asthma Acid reflux Anxiety Migraines Allergies Surgical History Surgical History (Updated 06/22/25 @ 15:47 by Judy Sandoval APRN) History of lumbar discectomy L5-S1 September 2024 H/O breast biopsy Hx of tonsillectomy History of hernia repair Family History Family History Mother Rheumatoid arthritis Dementia COPD (chronic obstructive pulmonary disease) Hyperlipidemia Father Cancer Grandparent Diabetes mellitus Sibling Thyroid disorder Rheumatoid arthritis Hyperlipidemia Social History Social History Smoking status: Never smoker Alcohol intake: never Substance use: never Substance use type: does not use Lack of Transportation: No Lack of Food: Never True Current Housing: I Have Housing Concerned About Future Housing: No Difficulty Paying Gas/Electric Bills: No Difficulty Paying for Meds: No Currently Unemployed: No Education: High School Diploma/GED Difficulty w/ Childcare or Family Care: No Living arrangements: with family Spiritual care concerns: No Comments At time of signature, agree with nursing past medical, surgical, social and family history. There is no relevant family history pertinent to the presenting complaint Exam Narrative: GENERAL: Well-appearing, well-nourished, and in no acute distress. HEAD: Normocephalic, atraumatic. EYES: PERRLA and EOMI. right upper eyelid is red ans swollen with patient having scaly rash to lateral aspect of right eye which is itchy. No periorbital cellulitis noted. Sclera and conjunctivae clear, denies any vision changes, increased watering of right eye with no mucous drainage no pustules or vesicles noted with no pain or burning sensation to eye voiced ENT: Nares clear, no rhinorrhea or epistaxis. Mucous membranes moist. NECK: Supple. no lymphadenopathy CHEST: Clear to auscultation. No respiratory distress.SAO2 100% on room air HEART: Regular rate and rhythm. No murmur heard. Normal peripheral pulses. SKIN: Warm, dry, no rash. NEURO: No focal deficits. Alert and oriented x3. Course Course Level of Care: Express Care Visit Vital Signs Vital signs: Vital Signs Temperature 36.1 C L 06/21/25 11:47 Pulse Rate 84 06/21/25 11:47 Respiratory Rate 20 06/21/25 11:47 Blood Pressure 151/62 H 06/21/25 11:47 Pulse Oximetry 97 06/21/25 11:47 Oxygen Delivery Room Air 06/21/25 11:47 Temperature 36.1 C L 06/21/25 11:47 Pulse Rate 84 06/21/25 11:47 Respiratory Rate 20 06/21/25 11:47 Blood Pressure 151/62 H 06/21/25 11:47 Pulse Oximetry 100 06/21/25 11:52 Oxygen Delivery Room Air 06/21/25 11:52 reviewed MDM MDM Narrative Medical decision making narrative: 70 year old female with red and swollen right upper eyelid with scaly rash to lateral side of right eye for 3 days which is itchy. Patient initial symptoms started 2 weeks ago saw PCP 1 week ago reports increased swelling of upper eyelid and increased watering from right eye today. has been taking allergy medication and benadryl. Patient has no visual changes or pain to her right eye no redness of sclera or conjunctiva. Patient received RX of prednisone, and to take zyrtec and Pepcid for 10 days and use hydrocortisone ointment to upper right eyelid and o rash lateral side of right eye. Anticipatory quidance and reviewed reasons to seek care in ED with understanding voiced Differential Diagnosis Differential Diagnosis: Differential diagnostic considerations for eye problems include corneal abrasion, conjunctivitis, acute iritis, hyphemia, periorbital cellulitis, subconjunctival hemorrhage, glaucoma, corneal ulcer, ruptured globe, foreign body in eye, swollen upper eyelid,scaly rash near eye? Critical Care Time Critical Care Time Critical Care Time: No Discharge Plan Discharge Clinical Impression: Contact dermatitis Qualifiers: Contact dermatitis type: unspecified Contact dermatitis trigger: unspecified trigger Qualified Code(s): L25.9 - Unspecified contact dermatitis, unspecified cause Patient Disposition: Home Condition: Stable Instructions: Contact Dermatitis (ED) Additional Instructions: May apply Benadryl ointment around eye or use hydrocortisone cream watch for any increasing --redness, swelling, drainage Zyrtec daily Pepcid 20 mg p.o. daily for 10 days follow up with PCP in 7-10 days for a wound check recheck if develop fever, chills, increasing symptom Go to the ER if your symptoms become worse of if ANY new symptoms develop prednisone taper take as prescribed with food If your symptoms persist, change or worsen significantly before you can contact your personal physician then please, without delay, go to the emergency department for further evaluation. Follow-up with PCP in 7-10 days or sooner if needed Follow up with PCP soon in regards to your blood pressure which is elevated above threshold for referral. Blood pressure above 120/80 may indicate pre-hypertension. Patient Language: German Prescriptions: New prednisone 10 mg tablet 10 mg PO DIRECTED Qty: 21 0RF Rx Instructions: see taper instructions 6 tabs day 1, 5 tabs day 2, 4 tabs day 3, 3 tabs day 4, 2 tabs day 5, 1 tab day 6 famotidine [Pepcid] 20 mg tablet 20 mg PO DAILY Qty: 10 0RF No Action carbamazepine 200 mg tablet extended release 12 hr PO Galzin 25 mg (zinc) capsule 25 mg PO DAILY Patient Comments: TAKES 50 MG DAILY duloxetine 30 mg capsule,delayed release(DR/EC) 30 mg PO QHS Qty: 30 2RF celecoxib [Celebrex] 100 mg capsule 100 mg PO BID Qty: 60 1RF magnesium 250 mg tablet 250 mg PO DAILY turmeric 400 mg capsule 1,000 mg PO DAILY cyanocobalamin (vitamin B-12) 1,000 mcg capsule 1,000 mcg PO DAILY milk thistle 175 mg capsule 175 mg PO DAILY Rx Instructions: give with meal/snack glucosamine-chondroitin [Osteo Bi-Flex] 250-200 mg tablet 1 tablet PO DAILY Rx Instructions: give after food/meal albuterol sulfate 90 mcg/actuation HFA aerosol inhaler See Rx Instructions .ROUTE .COMPLEX Qty: 9 6RF Dose Instruction: INHALE 2 PUFFS BY MOUTH EVERY 6 HOURS NEEDED FOR WHEEZING Rx Instructions: INHALE 2 PUFFS BY MOUTH EVERY 6 HOURS NEEDED FOR WHEEZING montelukast 10 mg tablet See Rx Instructions .ROUTE .COMPLEX Qty: 90 3RF Dose Instruction: Take 1 tablet by mouth once daily Rx Instructions: Take 1 tablet by mouth once daily Follow-up/Referrals: Noreen Hawk APRN [Primary Care Provider, Family Practice] Time of Disposition: 12:46 Quality Felda Coma Scale Eyes: Open Verbal: Oriented and Alert Motor: Follows Commands Jose Coma Total Score: 15
== END 2025-06-21 12:52 | disposition home or self-care (01) ==
PROVIDERS: Emergency Provider Registered Nurse; PCP Nurse Practitioner Adult Health
DX: L25.9 Unspecified contact dermatitis, unspecified cause (principal); J45.909 Unspecified asthma, uncomplicated; K21.9 Gastro-esophageal reflux disease without esophagitis
CPT/HCPCS: 99213; G0463